=== PATIENT | female | born 1935 | race Caucasian/White ===

== ENCOUNTER 2016-04-11 08:14 | Emergency (ER) | payer OTHER ==
--- NOTE | 2016-04-11 08:18 | UCPHY ---
H & P Patient Type: Established HPI/ROS: CHIEF COMPLAINT: Chest pain. HISTORY OF PRESENT ILLNESS: The patient is an 80-year-old female with a history of chronic indigestion who presents with burning substernal chest pain since yesterday evening. She reports that the pain feels different than her usual indigestion as her indigestion never lasts throughout the night. Today the pain is rated as 3/10 and is non-radiating. She denies alleviating or provoking factors. No fever, diaphoresis, chills, shortness of breath, palpitations, vomiting, diarrhea, urinary complaints, headache, lightheadedness. She did have an endoscopy 6 weeks ago that showed an "esophageal tear". Patient reports heartburn symptoms seem to be worsening gradually over the last several weeks and she has began using Maalox or Mylanta on occasion. She does take Celebrex for arthritis, 200 mg BID, and also takes omeprazole 40 mg twice daily. No cardiac history. No history of hypertension, hypercholesterolemia, diabetes , or smoking. REVIEW OF SYSTEMS: Aside from elements discussed in the HPI, a comprehensive 10-point review of systems was reviewed and is negative. PAST MEDICAL HISTORY: GERD, arthritis, bursitis, tubal ligation. SOCIAL HISTORY: Nonsmoker but has had exposure to secondhand smoke, no alcohol use. VITAL SIGNS: Reviewed by me GENERAL: Elderly, pleasant, well-developed, well-nourished, resting comfortably in no respiratory distress. HEENT: Atraumatic. Eyes: No icterus, no injection. Mouth: moist mucous membranes. No erythema or lesions. Neck: supple with no adenopathy. LUNGS: Clear to auscultation bilaterally, no wheezes, rhonchi or rales. CARDIAC: Regular rate and rhythm, no rubs, murmurs or gallops. ABDOMEN: Soft, no tenderness to palpation, nondistended, bowel sounds normal. BACK: No CVA tenderness. EXTREMITIES: No trauma. No edema. Range of motion is normal throughout. NEURO: Alert and oriented, grossly nonfocal. SKIN: Warm and dry, no rash. PSYCHIATRIC: Normal mentation, no agitation. Portions of this note were transcribed by a medical device assembler. I personally performed a history, physical exam, medical decision making, and confirmed accuracy of information the transcribed note. Source: Patient Exam Limitations: No limitations - Personal History Tetanus Vaccine Date: <10 YRS AGO - Medical/Surgical History Hx Asthma: No Hx Chronic Respiratory Disease: No Hx Diabetes: No Hx Cardiac Disease: No Hx Renal Disease: No Hx Cirrhosis: No Hx Alcoholism: No Hx HIV/AIDS: No Hx Splenectomy or Spleen Trauma: No Other PMH: med hx-. arthiritis, bursitis, GERD. surg-knee replacements - Family History Significant Family History: No pertinent family hx, Other (second hand smoke from ) - Social History Smoking Status: Never smoked Constitutional: Initial Vital Signs Temperature (C) 36.6 C 04/11/16 08:20 Heart Rate 72 04/11/16 08:20 Respiratory Rate 18 04/11/16 08:20 Blood Pressure 176/98 H 04/11/16 08:20 O2 Sat (%) 96 04/11/16 08:20 O2 Delivery Mode Room Air Allergies/Adverse Reactions: ciprofloxacin Allergy (Verified 04/11/16 08:36) FELT SICK ALL OVER Home Medications: Medication Instructions Recorded Omeprazole [Prilosec 20 mg] 20 mg PO BID 06/11/11 celeCOXIB [Celebrex] 200 mg PO DAILY 06/11/11 Ranitidine HCl 300 mg PO HS #30 capsule 04/11/16 Medical Decision Making - Diagnostics EKG Interpretation: 12-LEAD EKG: Please see the full report in [facility]. My interpretation: Normal sinus rhythm rate 78 with a first degree AV block. No acute ischemic changes. Imaging: X-ray of the chest was obtained. I viewed the images myself on the PACS system. My interpretation of the images is: no acute process. The radiologist interpretation is pending at this time. I discussed the x-ray findings with the patient. ED Course/Re-evaluation: An IV was established and labs ordered. I reviewed the patient's past medical notes. She was seen 01/2016 for heartburn similar to today's pain and felt better after a GI cocktail. Chest x-ray and EKG ordered. 80-year-old female presents to the urgent care with heartburn for 12 hours. Of concern, the patient has recently had her Celebrex increased to 200 mg 2 times a day. She has been taking been taking omeprazole 40 mg 2 times a day to treat her heartburn. Patient's troponin is negative. 55ml PO GI Cocktail administered. Patient's H&H has noted to decrease slightly since her last visit here in January. Patient denies any vomiting or changes in her stool. No diarrhea. I reviewed the patient's records from her Upper GI endoscopy on 03/07/2016 from [facility]. Patient's stool negative for blood. Patient's course was discussed with Dr. Nguyen from [facility]. Dr. Nguyen reviewed the films from the upper GI which was done on March 07. Recommendations are to add Carafate slurry 1 g 4 times a day as well as ranitidine 300 mg at bedtime. 1020: Consulted with [facility]. An appointment was established for a stress test in 2 days, Saturday, at 8:[address] Sanchez. Differential Diagnosis: Differential diagnoses for the patient's symptom complex was considered including but not limited to reflux, ulcer disease, upper GI hemorrhage, coronary artery disease, pancreatitis, cholecystitis, cholelithiasis, coronary artery disease. - Data Points Laboratory Results: Laboratory Results 04/11/16 08:57 04/11/16 08:57 04/11/16 04/11/16 09:55 08:57 WBC 4.32 10^3/uL (3.80-9.50) RBC 4.21 10^6/uL (4.18-5.33) Hgb 10.4 L g/dL (12.6-16.3) Hct 32.2 L % (38.0-47.0) MCV 76.5 L fL (81.5-99.8) MCH 24.7 L pg (27.9-34.1) MCHC 32.3 L g/dL (32.4-36.7) RDW 15.2 % (11.5-15.2) Plt Count 324 10^3/uL (150-400) MPV 9.0 fL (8.7-11.7) Neut % (Auto) 41.0 % (39.3-74.2) Lymph % (Auto) 46.8 H % (15.0-45.0) [place] % (Auto) 8.1 % (4.5-13.0) Eos % (Auto) 3.2 % (0.6-7.6) Baso % (Auto) 0.7 % (0.3-1.7) Nucleat RBC Rel Count 0.0 % (0.0-0.2) Absolute Neuts (auto) 1.77 10^3/uL (1.70-6.50) Absolute Lymphs (auto) 2.02 10^3/uL (1.00-3.00) Absolute Monos (auto) 0.35 10^3/uL (0.30-0.80) Absolute Eos (auto) 0.14 10^3/uL (0.03-0.40) Absolute Basos (auto) 0.03 10^3/uL (0.02-0.10) Absolute Nucleated RBC 0.00 10^3/uL (0-0.01) Immature Gran % 0.2 % (0.0-1.1) Immature Gran # 0.01 10^3/uL (0.00-0.10) Sodium 139 mEq/L (134-144) Potassium 3.6 mEq/L (3.5-5.2) Chloride 107 mEq/L (97-110) Carbon Dioxide 22 mEq/l (22-31) Anion Gap 10 mEq/L (8-16) BUN 15 mg/dL (7-23) Creatinine 1.0 mg/dL (0.6-1.0) Estimated GFR 53 Glucose 97 mg/dL (70-100) Calcium 9.1 mg/dL (8.5-10.4) Total Bilirubin 0.8 mg/dL (0.1-1.4) AST 17 IU/L (14-46) ALT 29 IU/L (9-52) Alkaline Phosphatase 83 IU/L (38-126) Troponin I < 0.012 ng/mL (0-0.034) Total Protein 6.1 L g/dL (6.3-8.2) Albumin 3.5 g/dL (3.5-5.0) Lipase 201.0 IU/L (23-300) Stool Occult Bld Scrn NEGATIVE (NEGATIVE) Medications Given: Discontinued Medications Miscellaneous Medication (Gi Cocktail) 55 ml PO EDNOW ONE Stop: 04/11/16 09:25 Last Admin: 04/11/16 09:34 Dose: 55 ml Departure - Departure Disposition: Home, Routine, Self-Care Clinical Impression: Esophagitis Chest pain Qualifiers: Chest pain type: unspecified Qualifier Code: (R07.9) Chest pain, unspecified GERD (gastroesophageal reflux disease) Qualifiers: Esophagitis presence: with esophagitis Qualifier Code: (K21.0) Gastro- esophageal reflux disease with esophagitis Condition: Good Instructions: Chest Pain (ED), Esophagitis (ED) Additional Instructions: Use Ranitidine as prescribed. Take Carafate as instructed. Decrease your Celebrex dose to 200mg once per day. Follow up with Dr. Sanchez, cardiology, on Saturday at 8:30 a.m. for your stress test. You have been provided his telephone number and can call if you have questions. The appointment has already been scheduled. Follow up with Dr. Byrnes for your repeat endoscopy Return to Urgent Care or the emergency room if you experience dizziness, lightheadedness, worsening chest pain, shortness of breath, or other serious worsening of condition. Referrals: Brock Byrnes MD [Medical Doctor] - As per Instructions Edmar Sanchez MD [Medical Doctor] - As per Instructions Prescriptions: Ranitidine HCl 300 mg PO HS #30 capsule - PQRS PQRS Measurement: 134: Depression screening and followup, PRIME MD-PHQ2 (12 years and older) Over the last 2 weeks, how often have you been bothered by any of the following problems? 1. Feeling down, depressed, or hopeless? 2. Little interest or pleasure in doing things? Patient answered no to both 1 and 2 130: Documentation of medications. Reviewed all patient medications, doses, route and frequency. 226: Do you smoke? No. 47: 65 and older: Advanced care planning. Patient has advanced directive. 51: 18 years old and older with diagnosis of COPD, spirometry performance. Patient has no history of COPD 52: 18 years old and older with COPD and symptoms of COPD or FEV1<60% predicted prescribed a B Agonist. [Patient has no history of COPD Report Scribed for: Alyce Bautista Report Scribed by: Felix Pino Date of Report: 04/11/16 Time of Report: 08:35
[2016-04-11 08:27] VITALS: RESP 18
--- NOTE | 2016-04-11 08:29 | CPEKG ---
Heart Rate: 78 RR Interval: 769 P-R Interval: 284 QRSD Interval: 104 QT Interval: 436 QTC Interval: 497 P [place]: 23 QRS [place]: -39 T Wave [place]: 30 EKG Severity - ABNORMAL ECG - EKG Impression: SINUS RHYTHM EKG Impression: FIRST DEGREE AV BLOCK EKG Impression: LEFT AXIS DEVIATION EKG Impression: BORDERLINE PROLONGED QT INTERVAL Electronically Signed By: Edmar Sanchez 12-Apr-2016 17:05:22
[2016-04-11 08:40] VITALS: TEMP 97.9
[2016-04-11 09:00] LABS: % IMMATURE GRANULYOCYTES 0.2 % (0.0-1.1); ABSOLUTE IMMATURE GRANULOCYTES 0.01 10^3/uL (0.00-0.10); ADD DIFF? NO; ADD MORPH? NO; ADD SCAN? NO; ATYPICAL LYMPHOCYTE FLAG 10 (0-99); FRAGMENT RBC FLAG 0 (0-99); HEMATOCRIT 32.2 % (38.0-47.0); HEMOGLOBIN 10.4 g/dL (12.6-16.3); LEFT SHIFT FLG 0 (0-99); LIPEMIA HEMOLYSIS FLAG 80 (0-99); MEAN CELL HEMOGLOBIN 24.7 pg (27.9-34.1); MEAN CELL HEMOGLOBIN CONCENTR. 32.3 g/dL (32.4-36.7); MEAN CELL VOLUME 76.5 fL (81.5-99.8); PLATELET CLUMPS FLAG 0 (0-99); PLATELET COUNT 324 10^3/uL (150-400); RED BLOOD CELL COUNT 4.21 10^6/uL (4.18-5.33); RED CELL DISTRIBUTION WIDTH 15.2 % (11.5-15.2)
[2016-04-11 09:13] LABS: ALANINE AMINOTRANSFERASE 29 IU/L (9-52); ALBUMIN 3.5 g/dL (3.5-5.0); ALKALINE PHOSPHATASE 83 IU/L (38-126); ANION GAP 10 mEq/L (8-16); ASPARTATE AMINOTRANSFERASE 17 IU/L (14-46); BILIRUBIN,TOTAL 0.8 mg/dL (0.1-1.4); CALCIUM 9.1 mg/dL (8.5-10.4); CARBON DIOXIDE 22 mEq/l (22-31); CHLORIDE 107 mEq/L (97-110); GLOMERULAR FILTRATION RATE 53; GLUCOSE 97 mg/dL (70-100); POTASSIUM 3.6 mEq/L (3.5-5.2); SODIUM 139 mEq/L (134-144); TOTAL PROTEIN 6.1 g/dL (6.3-8.2)
[2016-04-11 09:24] LABS: TROPONIN I < 0.012 ng/mL (0-0.034)
[2016-04-11] MEDS ORDERED: MAALOX/LIDO/HYOSC GI COCKTAIL 55 ML BOTTLE PO ONE (09:24)
--- NOTE | 2016-04-11 10:53 | DX ---
Chest, PA and Lateral Views April 11, 2016 0846 hours Clinical History: 80-year-old female with prolonged epigastric discomfort and chest pain since last n ight. Comparison Study: Chest, dated February 02, 2016. Findings: Telemetry monitoring lead lines are present. The cardiac and mediastinal silhouette is stab le, with mild tortuosity of the descending thoracic aorta. The lungs are well-expanded. There is no f ocal infiltrate, atelectasis, pleural effusion, or peripheral interstitial edema. Mild underlying CIS COORDINATOR D is present. The osseous structures are age-appropriate. Impression: No acute abnormality, or substantial change from February 02, 2016.
[2016-04-11 11:29] VITALS: BP 135/99; PULSE 75; O2SAT 97
== END 2016-04-11 10:58 | disposition home or self-care (01) ==
LOC: CED 08:14
DX: K21.0 Gastro-esophageal reflux disease with esophagitis (principal); R07.9 Chest pain, unspecified; K21.9 Gastro-esophageal reflux disease without esophagitis; Z96.653 Presence of artificial knee joint, bilateral
CPT/HCPCS: 71020; 93005; G0463; 80053-PO; 82270-PO; 83690-PO; 84484-PO; 85025-PO; 93010-PO; 99215-PO

== ENCOUNTER → 2016-04-13 | Outpatient (CLI) | payer OTHER | LOC: BHFA 08:45 | PROVIDERS: ATTEND Internal Medicine Cardiovascular Disease | DX: R94.31 Abnormal electrocardiogram [ECG] [EKG] (principal); I11.9 Hypertensive heart disease without heart failure; R07.9 Chest pain, unspecified ==

== ENCOUNTER → 2016-04-19 | Outpatient (CLI) | payer OTHER | LOC: BHFA 13:00 | PROVIDERS: ATTEND Internal Medicine Cardiovascular Disease | DX: R07.9 Chest pain, unspecified (principal); R94.31 Abnormal electrocardiogram [ECG] [EKG] | CPT/HCPCS: 78452; 93017; 93306; A9500; J2785 ==

== ENCOUNTER → 2016-04-19 | Outpatient (CLI) | payer OTHER | LOC: BHCLAF 10:45 | PROVIDERS: ATTEND Internal Medicine Cardiovascular Disease | DX: R94.31 Abnormal electrocardiogram [ECG] [EKG] (principal) | CPT/HCPCS: 93306-PO ==

== ENCOUNTER 2016-06-14 11:54 | Inpatient (IN) | payer OTHER ==
--- NOTE | 2016-06-14 12:06 | CPEKG ---
Heart Rate: 85 RR Interval: 706 P-R Interval: 240 QRSD Interval: 104 QT Interval: 400 QTC Interval: 476 P [place]: 48 QRS [place]: 41 T Wave [place]: -4 EKG Severity - ABNORMAL ECG - EKG Impression: SINUS RHYTHM EKG Impression: MULTIFORM VENTRICULAR PREMATURE COMPLEXES EKG Impression: FIRST DEGREE AV BLOCK EKG Impression: BORDERLINE T ABNORMALITIES, INFERIOR LEADS Electronically Signed By: Jamin Taylor 15-Jun-2016 09:06:01
[2016-06-14 12:46] LABS: % IMMATURE GRANULYOCYTES 0.2 % (0.0-1.1); ABSOLUTE IMMATURE GRANULOCYTES 0.01 10^3/uL (0.00-0.10); ADD DIFF? NO; ADD MORPH? NO; ADD SCAN? NO; ATYPICAL LYMPHOCYTE FLAG 0 (0-99); FRAGMENT RBC FLAG 0 (0-99); HEMATOCRIT 32.2 % (38.0-47.0); HEMOGLOBIN 10.2 g/dL (12.6-16.3); LEFT SHIFT FLG 0 (0-99); LIPEMIA HEMOLYSIS FLAG 80 (0-99); MEAN CELL HEMOGLOBIN 24.3 pg (27.9-34.1); MEAN CELL HEMOGLOBIN CONCENTR. 31.7 g/dL (32.4-36.7); MEAN CELL VOLUME 76.7 fL (81.5-99.8); MEAN PLATELET VOLUME 9.2 fL (8.7-11.7); PLATELET CLUMPS FLAG 0 (0-99); PLATELET COUNT 406 10^3/uL (150-400); RED CELL DISTRIBUTION WIDTH 16.9 % (11.5-15.2)
[2016-06-14 12:51] LABS: APTT 25.2 SEC (23.0-38.0); INR 1.02 (0.83-1.16); PROTIME(PATIENT) 13.1 SEC (12.0-15.0)
[2016-06-14 12:54] LABS: ALANINE AMINOTRANSFERASE 24 IU/L (9-52); ALBUMIN 3.3 g/dL (3.5-5.0); ALKALINE PHOSPHATASE 85 IU/L (38-126); ANION GAP 11 mEq/L (8-16); ASPARTATE AMINOTRANSFERASE 15 IU/L (14-46); BILIRUBIN,TOTAL 0.6 mg/dL (0.1-1.4); CALCIUM 8.8 mg/dL (8.5-10.4); CARBON DIOXIDE 22 mEq/l (22-31); CHLORIDE 105 mEq/L (97-110); CREATININE 0.9 mg/dL (0.6-1.0); GLOMERULAR FILTRATION RATE > 60; GLUCOSE 120 mg/dL (70-100); POTASSIUM 3.8 mEq/L (3.5-5.2); SODIUM 138 mEq/L (134-144); TOTAL PROTEIN 5.8 g/dL (6.3-8.2)
--- NOTE | 2016-06-14 12:57 | UCPHY ---
H & P Patient Type: Established Chief Complaint Nursing Narrative: Pt. states aprox 0900 this am pt. felt epigastric burning as well as chest pressure with SOB. Denies radiating pain or n/v. Time Seen by Provider: 06/14/16 12:13 HPI/ROS: 80-year-old female presents complaining of dizziness/wooziness that began possibly intermittently yesterday but was much more noticeable this morning. She also states she has a feeling of chest heaviness, as if she needs to unzip her ribs to loosen them up. No nausea vomiting or diarrhea. She denies weakness in her extremities. She was able to drive to the urgent care today without difficulty. She denies recent illnesses. No history of coronary artery disease, however she does have a history of hypertension and hyperlipidemia, and has been noted to have PACs on multiple occasions. She states she has a history of pulmonary embolus following knee surgery. She is no longer on anticoagulants. Review of systems General no fever no chills no weakness HEENT no eye pain no eye discharge. No eye redness, no sore throat Respiratory no cough, no shortness of breath Cardiac positive chest heaviness/tightness, no peripheral edema GI no abdominal pain, no diarrhea, no constipation, no nausea, no vomiting no flank pain, no hematuria, no dysuria Musculoskeletal no myalgias, no joint pain Heme no easy bruising, no easy bleeding Endo no polyuria, no polydipsia Skin no rashes, no pruritus Neuro no syncope, positive dizziness, no headaches Psych is no suicidal ideation, no homicidal ideation Source: Patient Exam Limitations: No limitations - Personal History Current Tetanus/Diphtheria Vaccine: Yes Tetanus Vaccine Date: <10 YRS AGO - Medical/Surgical History Hx Asthma: No Hx Chronic Respiratory Disease: No Hx Diabetes: No Hx Cardiac Disease: Yes Hx Renal Disease: No Hx Cirrhosis: No Hx Alcoholism: No Hx HIV/AIDS: No Hx Splenectomy or Spleen Trauma: No Other PMH: med hx-. arthiritis, bursitis, GERD. surg-knee replacements. Hiatal hernia. Pulmonary embolus - Family History Significant Family History: No pertinent family hx - Social History Smoking Status: Never smoked Alcohol Use: None Drug Use: None - Physical Exam Exam: 80-year-old female alert and oriented in no acute distress, appears fatigued however appears nontoxic afebrile Atraumatic normocephalic Extraocular muscles intact, anicteric Neck no JVD, supple Lungs clear to auscultation bilaterally Heart regular rate and rhythm Abdomen nondistended bowel sounds present soft nontender Back no CVA tenderness Extremities-multiple varicose veins, no calf tenderness, no edema Constitutional: Initial Vital Signs Temperature (C) 36.2 C 06/14/16 12:00 Heart Rate 97 06/14/16 12:00 Respiratory Rate 26 H 06/14/16 12:00 Blood Pressure 131/76 H 06/14/16 12:00 O2 Sat (%) 97 06/14/16 12:00 O2 Delivery Mode Room Air Allergies/Adverse Reactions: ciprofloxacin Allergy (Verified 06/14/16 12:08) FELT SICK ALL OVER Home Medications: Medication Instructions Recorded Omeprazole [Prilosec 20 mg] 20 mg PO BID 06/11/11 celeCOXIB [Celebrex] 200 mg PO DAILY 06/11/11 Ranitidine HCl 300 mg PO HS #30 capsule 04/11/16 Carafate 1 GM (*) 06/14/16 Norvasc 2.5 mg (*) 06/14/16 Medical Decision Making - Diagnostics EKG Interpretation: He EKG done at 12:04 p.m. on June 14, 2016 Normal sinus rhythm, first-degree AV block OK 240 Flat Ts in the inferior leads Occasional PVCs Similar to EKG done in April of 2016 ED Course/Re-evaluation: Patient seen and evaluated for dizziness and chest heaviness EKG normal sinus rhythm no ischemic changes IV established, lab sent Troponin negative D-dimer elevated CT chest ordered to rule out pulmonary embolus CT chest with left lower lobe pulmonary embolus Also with large hiatal hernia Impression PE Plan Lovenox 80 mg subcu Admit to [facility] to EACU to Dr. Coelho - Data Points Laboratory Results: Laboratory Results 06/14/16 12:14 06/14/16 12:14 06/14/16 06/14/16 06/14/16 12:57 12:14 12:14 WBC RBC Hgb Hct MCV MCH MCHC RDW Plt Count MPV Neut % (Auto) Lymph % (Auto) [place] % (Auto) Eos % (Auto) Baso % (Auto) Nucleat RBC Rel Count Absolute Neuts (auto) Absolute Lymphs (auto) Absolute Monos (auto) Absolute Eos (auto) Absolute Basos (auto) Absolute Nucleated RBC Immature Gran % Immature Gran # PT 13.1 SEC SEC (12.0-15.0) INR 1.02 (0.83-1.16) APTT 25.2 SEC SEC (23.0-38.0) D-Dimer 1.34 ug/mLFEU H ug/mLFEU (0.00-0.50) Sodium 138 mEq/L mEq/L (134-144) Potassium 3.8 mEq/L mEq/L (3.5-5.2) Chloride 105 mEq/L mEq/L (97-110) Carbon Dioxide 22 mEq/l mEq/l (22-31) Anion Gap 11 mEq/L mEq/L (8-16) BUN 15 mg/dL mg/dL (7-23) Creatinine 0.9 mg/dL mg/dL (0.6-1.0) Estimated GFR > 60 Glucose 120 mg/dL H mg/dL (70-100) Calcium 8.8 mg/dL mg/dL (8.5-10.4) Total Bilirubin 0.6 mg/dL mg/dL (0.1-1.4) AST 15 IU/L IU/L (14-46) ALT 24 IU/L IU/L (9-52) Alkaline Phosphatase 85 IU/L IU/L (38-126) Troponin I < 0.012 ng/mL ng/mL (0-0.034) Total Protein 5.8 g/dL L g/dL (6.3-8.2) Albumin 3.3 g/dL L g/dL (3.5-5.0) Group A Strep Screen NEGATIVE (NEGATIVE) 06/14/16 12:14 WBC 5.07 10^3/uL 10^3/uL (3.80-9.50) RBC 4.20 10^6/uL 10^6/uL (4.18-5.33) Hgb 10.2 g/dL L g/dL (12.6-16.3) Hct 32.2 % L % (38.0-47.0) MCV 76.7 fL L fL (81.5-99.8) MCH 24.3 pg L pg (27.9-34.1) MCHC 31.7 g/dL L g/dL (32.4-36.7) RDW 16.9 % H % (11.5-15.2) Plt Count 406 10^3/uL H 10^3/uL (150-400) MPV 9.2 fL fL (8.7-11.7) Neut % (Auto) 48.3 % % (39.3-74.2) Lymph % (Auto) 41.4 % % (15.0-45.0) [place] % (Auto) 8.3 % % (4.5-13.0) Eos % (Auto) 1.4 % % (0.6-7.6) Baso % (Auto) 0.4 % % (0.3-1.7) Nucleat RBC Rel Count 0.0 % % (0.0-0.2) Absolute Neuts (auto) 2.45 10^3/uL 10^3/uL (1.70-6.50) Absolute Lymphs (auto) 2.10 10^3/uL 10^3/uL (1.00-3.00) Absolute Monos (auto) 0.42 10^3/uL 10^3/uL (0.30-0.80) Absolute Eos (auto) 0.07 10^3/uL 10^3/uL (0.03-0.40) Absolute Basos (auto) 0.02 10^3/uL 10^3/uL (0.02-0.10) Absolute Nucleated RBC 0.00 10^3/uL 10^3/uL (0-0.01) Immature Gran % 0.2 % % (0.0-1.1) Immature Gran # 0.01 10^3/uL 10^3/uL (0.00-0.10) PT INR APTT D-Dimer Sodium Potassium Chloride Carbon Dioxide Anion Gap BUN Creatinine Estimated GFR Glucose Calcium Total Bilirubin AST ALT Alkaline Phosphatase Troponin I Total Protein Albumin Group A Strep Screen Departure - Departure Disposition: [facility] Acute Clinical Impression: Pulmonary embolus, Hiatal hernia, Dizziness Condition: Good - PQRS PQRS Measurement: 134: Depression screening and followup, PRIME MD-PHQ2 (12 years and older) Over the last 2 weeks, how often have you been bothered by any of the following problems? 1. Feeling down, depressed, or hopeless? 2. Little interest or pleasure in doing things? Patient answered no to both 1 and 2 130: Documentation of medications. Reviewed all patient medications, doses, route and frequency. 226: Do you smoke? No. 47: 65 and older: Advanced care planning. Patient designates surrogate decision maker as spouse.. [Patient has advanced directive.] 51: 18 years old and older with diagnosis of COPD, spirometry performance. [Patient has no history of COPD 52: 18 years old and older with COPD and symptoms of COPD or FEV1<60% predicted prescribed a B Agonist. [Spirometry not performed; equipment not available.]
[2016-06-14] MEDS ORDERED: IOPAMIDOL (ISOVUE 370) 100 ML BTL IV ONE (13:08)
[2016-06-14 13:10] LABS: TROPONIN I < 0.012 ng/mL (0-0.034)
[2016-06-14] MEDS ORDERED: ENOXAPARIN 80 MG/0.8 ML SYR SC ONE (15:21)
[2016-06-14] MEDS ORDERED: MAG HYDROX/AL HYDROX/SIMETH 30 ML UDCUP PO PRN (16:06)
[2016-06-14] MEDS ORDERED: ONDANSETRON DISINTEGRATING 4 MG TAB PO PRN (19:03)
[2016-06-14] MEDS ORDERED: ACETAMINOPHEN 325 MG TAB PO PRN (19:03)
[2016-06-14] MEDS ORDERED: ONDANSETRON 4 MG/2 ML VIAL IVP PRN (19:03)
[2016-06-14] MEDS ORDERED: oxyCODONE IR 5 MG TAB PO PRN (19:07)
[2016-06-14] MEDS: FAMOTIDINE 20 MG TAB PO SCH (20:23)
[2016-06-14] MEDS: PANTOPRAZOLE SODIUM 40 MG TAB PO SCH (20:24)
[2016-06-14] MEDS ORDERED: SUCRALFATE 1 GM TAB PO SCH (21:00)
[2016-06-14] MEDS ORDERED: NON-FORMULARY NEW DRUG (Ranitidine Hcl [Ranitidine Hcl] 300 MG) PO SCH (21:00)
[2016-06-14] MEDS ORDERED: NON-FORMULARY NEW DRUG (Omeprazole [Prilosec 20 Mg] 20 MG) PO SCH (21:00)
--- NOTE | 2016-06-14 21:05 | GHP ---
[f rep st] HISTORY AND PHYSICAL DATE OF ADMISSION: 06/14/2016 CHIEF COMPLAINT: Pulmonary embolism. 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 This was more notable today. She also has had a chest heaviness as if she needs to unzip her ribs to loosen them up. Per daughter, patient underwent esophageal dilatation 2 weeks ago and has been complaining of a dry cough and sore throat, hence why they came to the clinic today. The cough is dry and she denies fevers, chills or sweats. No nausea, vomiting, diarrhea. Denies weakness. She has noted more shortness of breath with exertion, like taking out the trash or chores. REVIEW OF SYSTEMS: I completed a 10-point review of systems, negative except as noted in HPI. PAST MEDICAL HISTORY: At least 2 pulmonary embolisms in the setting of surgery , also DVT, hypertension, hypothyroid, memory loss, arthritis, hiatal hernia. PAST SURGICAL HISTORY: Tonsillectomy, tubal ligation, bilateral TKA, ankle surgery and hysterectomy. SOCIAL HISTORY: Lives in [place] alone. Her daughter lives in [place]. No illicit drugs or alcohol. FAMILY HISTORY: No clots, no CAD. ALLERGIES: Ciprofloxacin. MEDICATIONS: 1. Carafate. 2. Levothyroxine 37 mcg daily. 3. Norvasc 2.5 mg daily. 4. Celebrex 200 mg daily. 5. Ranitidine 300 mg at bedtime. 6. Prilosec 20 mg daily. PHYSICAL EXAM: VITAL SIGNS: Temperature 36.4, blood pressure 151/86, heart rate 70s, respirations 18, 95% on room air. GENERAL: Patient is lying in bed, no acute distress. HEENT: PERRLA, EOMI, moist mucous membranes. CV: Regular rate and rhythm. No murmurs, gallops, rubs. LUNGS: Clear to auscultation bilaterally. No wheezes or crackles. ABDOMEN: Soft, nontender, nondistended. Positive bowel sounds. : No suprapubic tenderness. MUSCULOSKELETAL: 5/5 upper and lower extremity strength. NEURO: 2 through 12 intact. PSYCH: Alert and oriented x3. LABS: WBC 5, hemoglobin 10, hematocrit 32, stable from 2 months ago. MCV 76.7. INR 1. PT 13. PTT 25. D-dimer is 134. Sodium 138, potassium 3.8, chloride 105, carbon dioxide 22, BUN 15, creatinine 0.9, glucose 120. Troponin less than 0.012. Total bilirubin 0.6, total protein 5.8, albumin 3.3. CTA: Solitary segmental left pulmonary embolism. Coronary artery disease. Large hiatal hernia. Multiple noncalcified pulmonary nodules including a dominant ground glass in the left upper lobe. Chest x-ray personally reviewed by me: No opacity or effusion. EKG personally reviewed by me: PVC, first-degree block, ST flattening in inferior leads. Similar to past EKGs. ASSESSMENT/PLAN: 1. Acute pulmonary embolism: she has had prior pulmonary embolisms and DVTs, but has been off Coumadin for years. At this point, I would recommend lifelong anticoagulation. I spoke with patient and daughter, and they would prefer Coumadin. We will start that tomorrow. Currently on Lovenox dosing. Of note, the patient was seen by jazz musician and was concern for microcytic anemia , and is to undergo colonoscopy. Currently patient denies any bleeding, melena or bright red blood per rectum. She does take Celebrex. Will advise her to hold this medication. It appears she does not have any active bleeding. I did stress symptoms to watch out for include dizziness, rectal bleeding, melena. 2. Patient would like home health to help her with Lovenox shots at home. 3. Benign hypertension. Continue home medications. 4. Hypothyroidism. Continue levothyroxine. 5. Memory loss. Per daughter, there is concern that the patient is forgetting some of her home medications. She and her sister would like Case Management to help with assistance at home, possibly a home nurse and other services. 6. Diet: Regular. 7. DVT prophylaxis: On Lovenox. DISPOSITION: Patient warrants observation admission given acute PE, monitoring on telemetry. /[id number]/MODL [id number]
[2016-06-15 05:16] LABS: HEMATOCRIT 30.8 % (38.0-47.0); HEMOGLOBIN 9.8 g/dL (12.6-16.3); MEAN CELL HEMOGLOBIN 24.1 pg (27.9-34.1); MEAN CELL HEMOGLOBIN CONCENTR. 31.8 g/dL (32.4-36.7); MEAN CELL VOLUME 75.7 fL (81.5-99.8); RED BLOOD CELL COUNT 4.07 10^6/uL (4.18-5.33); RED CELL DISTRIBUTION WIDTH 16.8 % (11.5-15.2)
[2016-06-15] MEDS: LEVOTHYROXINE 25 MCG TAB PO SCH (05:18)
[2016-06-15] MEDS: ENOXAPARIN 80 MG/0.8 ML SYR SC SCH ×3 (05:18→20:19)
[2016-06-15 05:20] LABS: INR 1.12 (0.83-1.16); PROTIME(PATIENT) 14.3 SEC (12.0-15.0)
[2016-06-15] MEDS: PANTOPRAZOLE SODIUM 40 MG TAB PO SCH ×2 (08:38→20:18)
[2016-06-15] MEDS: SUCRALFATE 1 GM TAB PO SCH ×3 (12:44→20:34)
--- NOTE | 2016-06-15 13:27 | HOSPPROG ---
Hospitalist Progress Note Assessment/Plan: Patient is an 80-year-old female with a history of a PE x2 in a DVT in the past. This occurred approximately 20 years ago. She presented to urgent care with dizziness that started yesterday. She also underwent a recent esophageal dilatation 2 weeks ago. Today is my 1st encounter with the patient. Chart reviewed. *. 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 multiple noncalcified pulmonary nodules - she get a repeat CT of her chest in 6 months for follow-up * large hiatal hernia * anemia/ microcytic - she is to undergo a colonoscopy - recommend close follow-up because she will be on oral anticoagulation - slight drop in her hemoglobin hematocrit /will recheck labs in the morning * memory loss/ per nursing staff had some ing yesterday - speech therapy to do a cognitive evaluation while she is in the hospital * hypertension - blood pressure is stable * recent esophageal dilatation - continue Carafate * hypothyroidism - Synthroid *Plan: she will require another midnight stay for close monitoring/ very concerned about discharging home with microcytic anemia and starting OAC/ she had a drop in h/h. Will also ask ST to do a cognitive evaluation. She lives alone. Daughter has voiced concern about her mom's inablilty to take medications safely. Case Management actively involved in helping arrange home care. Also follow-up appointment with patient's primary care provider has been done by case management. Appreciate their involvement with caring for this patient Subjective: Kennedy has no complaints. She is very anxious to return home. But is willing to stay another night after case management talk with her and her daughter. Objective: Vital Signs Temp Pulse Resp BP Pulse Ox 37.2 C 87 16 114/67 97 06/15/16 11:45 06/15/16 11:45 06/15/16 11:45 06/15/16 11:45 06/15/16 11:45 Laboratory Results 06/15/16 04:30 06/14/16 06/15/16 06/16/16 05:59 05:59 05:59 Intake Total 250 Output Total 200 Balance 50 PT 14.3 SEC (12.0-15.0) 06/15/16 04:30 INR 1.12 (0.83-1.16) 06/15/16 04:30 - Physical Exam Constitutional: no apparent distress, appears nourished, not in pain Eyes: PERRL Ears, Nose, Mouth, Throat: hearing normal Cardiovascular: regular rate and rhythym Respiratory: no respiratory distress Gastrointestinal: normoactive bowel sounds Skin: warm, No normal color (pale) Musculoskeletal: full muscle strength Neurologic: AAOx3 Psychiatric: interacting appropriately, poor insight, poor judgement, poor memory ICD10 Worksheet Patient Problems: Problems Problem Status Onset Dizziness Acute Hiatal hernia Acute Pulmonary embolus Acute GERD (gastroesophageal reflux disease) Acute
[2016-06-15] MEDS ORDERED: WARFARIN SODIUM 5 MG TAB PO SCH (16:00)
[2016-06-15] MEDS: FAMOTIDINE 20 MG TAB PO SCH (20:19)
[2016-06-16] MEDS: LEVOTHYROXINE 25 MCG TAB PO SCH (05:08)
[2016-06-16 05:14] LABS: HEMATOCRIT 30.3 % (38.0-47.0); HEMOGLOBIN 9.5 g/dL (12.6-16.3)
[2016-06-16 05:21] LABS: INR 1.12 (0.83-1.16); PROTIME(PATIENT) 14.3 SEC (12.0-15.0)
[2016-06-16 07:38] VITALS: BP 117/79; PULSE 84; RESP 15; TEMP 98.4; O2SAT 95
[2016-06-16] MEDS: SUCRALFATE 1 GM TAB PO SCH ×2 (07:48→11:34)
[2016-06-16] MEDS: PANTOPRAZOLE SODIUM 40 MG TAB PO SCH (08:33)
[2016-06-16] MEDS: ENOXAPARIN 80 MG/0.8 ML SYR SC SCH (09:02)
--- NOTE | 2016-06-16 10:19 | HOSPPROG ---
Hospitalist Progress Note Assessment/Plan: Patient is an 80-year-old female with a history of a PE x2 in a DVT in the past. This occurred approximately 20 years ago. She presented to urgent care with dizziness that started yesterday. She also underwent a recent esophageal dilatation 2 weeks ago. *. Acute PE - patient has a history of this x2 should stay on lifelong Coumadin - on treatment dose of Lovenox/will change it to once daily so home care can give it to her - started on Coumadin *. multiple noncalcified pulmonary nodules - she get a repeat CT of her chest in 6 months for follow-up * large hiatal hernia * anemia/ microcytic - she is to undergo a colonoscopy - recommend close follow-up because she will be on oral anticoagulation * memory loss/ per nursing staff had some ing yesterday - speech therapy evaluated and noted short term memory loss * hypertension - blood pressure is stable * recent esophageal dilatation - continue Carafate * hypothyroidism - Synthroid *Plan: dc home with home care/ recommended no driving until she gets further w/ u in the OP setting/ she needs to get a full evaluation for this by a neurologist. Subjective: Kennedy has no complaints. No shortness of breath. Objective: Vital Signs Temp Pulse Resp BP Pulse Ox 36.9 C 84 15 117/79 95 06/16/16 07:36 06/16/16 07:36 06/16/16 07:36 06/16/16 07:36 06/16/16 07:36 Laboratory Results 06/16/16 04:39 06/15/16 06/16/16 06/17/16 05:59 05:59 05:59 Intake Total 300 Output Total 200 Balance 100 PT 14.3 SEC (12.0-15.0) 06/16/16 04:39 INR 1.12 (0.83-1.16) 06/16/16 04:39 - Physical Exam Constitutional: no apparent distress, appears nourished, not in pain Eyes: PERRL Ears, Nose, Mouth, Throat: hearing normal Cardiovascular: regular rate and rhythym Respiratory: no respiratory distress Gastrointestinal: normoactive bowel sounds, soft, non-tender abdomen Skin: warm, No normal color (pale) Musculoskeletal: full muscle strength, no muscle tenderness Neurologic: AAOx3 Psychiatric: interacting appropriately, poor memory, other (defensive) ICD10 Worksheet Patient Problems: Problems Problem Status Onset Dizziness Acute Hiatal hernia Acute Pulmonary embolus Acute GERD (gastroesophageal reflux disease) Acute
[2016-06-16] MEDS ORDERED: ENOXAPARIN 40 MG/0.4 ML SYR SC ONE (10:20)
--- NOTE | 2016-06-16 10:54 | PDIAF ---
- Diagnosis Diagnosis: PE, short term memory loss, iron deficiency anemia Code Status: Full Code - Medication Management Discharge Medications: Medications to Continue on Transfer Omeprazole [Prilosec 20 mg] 20 mg PO BID 06/11/11 [Last Taken 06/14/16] Ranitidine HCl 300 mg PO HS #30 capsule 04/11/16 [Last Taken 06/13/16] Levothyroxine [Synthroid 25 mcg (*)] 37.5 mcg PO DAILY06 06/14/16 [Last Taken ] Sucralfate [Carafate 1 GM (*)] 1 gm PO HS 06/14/16 [Last Taken 06/13/16] amLODIPine BESYLATE [Norvasc 2.5 mg (*)] 2.5 mg PO DAILY 06/14/16 [Last Taken 03:00] Enoxaparin [Lovenox 120 MG (*)] 120 mg SQ DAILY #5 ml 06/16/16 [Last Taken Unknown] Sucralfate [Carafate 1 GM (*)] 1 gm PO ACHS #0 tab 06/16/16 [Last Taken Unknown] Warfarin Sodium [Coumadin 5MG (*)] 5 mg PO DAILY AT 4PM #30 tab 06/16/16 [Last Taken Unknown] Discharge Medications: Refer to the Discharge Home Medication list for PRN reason. - Orders Services needed: Home Care, Registered Nurse, Speech Language Pathologist Home Care Face to Face: I certify that this patient was under my care and that I had the required [id number] encounter meeting the encounter requirements on the discharge day. My findings support the fact that the patient is homebound as defined in CMS Chapter 7 Medicare Benefits Manual 30.1.1, The condition of the patient is such that there exists a normal inability to leave home and consequently, leaving home would require a considerable and taxing effort. Diet Recommendation: no restrictions on diet Diet Texture: Regular Texture Diet Additional: Patient needs f/u with Dr Mayes/ has an appt on / recommending she see a neurolgist for further evaluation in regards to driving. She needs close monitoring of INR and hemoglobin and hematocrit/ she is on coumadin and has iron deficiency anemia/ needs close f/u with her gastroenterolgist. - Labs/Radiology HCT/HGB Date: 06/18/16 (weekly) PT/INR Date: 06/18/16 (q 3days till stable) - Follow Up Care Current Providers and Referrals: Kassi Stephens MD [Primary Care Provider] - As per Instructions
--- NOTE | 2016-06-16 11:39 | GDS ---
[f rep st] DISCHARGE SUMMARY DISCHARGE DIAGNOSES: 1. Acute pulmonary embolism. 2. Multiple noncalcified pulmonary nodules. 3. Large hiatal hernia. 4. Microcytic anemia. 5. Short-term memory loss. 6. Hypertension. 7. Recent esophageal dilatation. 8. Hypothyroidism. Briefly, the patient is an 80-year-old female with a history of pulmonary embolism x2 and a DVT in the past, which occurred approximately 20 years ago. She presented to the emergency room with dizziness. Per daughter, the patient underwent esophageal dilatation approximately 2 weeks ago and has been complaining of a dry cough and sore throat until they came to the clinic. She had a CTA performed that showed a solitary segmental left pulmonary embolism. She has coronary artery disease as well as a large hiatal hernia. She has multiple noncalcified pulmonary nodules, including a dominant ground-glass nodule in the left upper lobe. She will need a followup CT of her chest. She slowly improved through her stay. The big issue was to be sure that she was safe to return home. She had a cognitive evaluation done by the speech therapist, who recommended assistance with medications, finances, and recommended no driving. She will have a home care speech therapist evaluate in her home. HOSPITAL COURSE: 1. Acute PE. She has a history of this x2. She should be on lifelong Coumadin. Case management spoke to her doctor, Dr. Mayes, who will follow up with her INR. She also has an appointment with her next week. 2. Multiple noncalcified pulmonary nodules. She needs to get a repeat CT scan in 6 months for followup. 3. Large hiatal hernia. No complaints. 4. Microcytic anemia. She is to go undergo a colonoscopy. I explained to the patient and her daughter my concerns of starting her on oral anticoagulation in the setting of microcytic anemia. She will have her hemoglobin and hematocrit monitored. 5. Memory loss. I am concerned that she has significant short-term memory loss and possibly dementia. I have recommended that she not drive until she is further evaluated by a neurologist. 6. Hypertension. Blood pressure is stable. 7. Recent esophageal dilatation, doing well with Carafate. 8. Hypothyroidism, on Synthroid. PENDING LABS AND TESTS: None. CONDITION AT DISCHARGE: Stable. Blood pressure is 117/79. Heart rate is 84. Respiratory rate is 16. O2 sats on room air are 95%. Temperature is 36.9 Celsius. MEDICATIONS ON DISCHARGE: Please see the EMR. DISCHARGE INSTRUCTIONS: 1. Recommending that she follow up with Dr. Mayes next week. She has an appointment. 2. No driving until she follows with Dr. Mayes. I am recommending that she see a neurologist to further evaluate her. 3. INR to be checked Saturday. Her doctor will decide on her dose of Coumadin. 4. Lovenox daily until INR is therapeutic for greater than 2 days. 5. Try Tylenol at night. She has been taking Percocet. 6. Stop Celebrex. 7. To get pulmonary nodules further evaluated in 6 months. Greater than 30 minutes for discharging and coordinating care. /[id number]/MODL MTDD
== END 2016-06-16 12:34 | disposition home health service (06) | DRG 176 ==
LOC: CED 11:54 → CEDHOLD 15:16 → F3N 18:26 → OBSVTOIN 06-15 17:02
PROVIDERS: ADMIT Internal Medicine; ATTEND Internal Medicine
DX: I26.99 Other pulmonary embolism without acute cor pulmonale (principal); R91.1 Solitary pulmonary nodule; D50.9 Iron deficiency anemia, unspecified; R41.3 Other amnesia; E78.5 Hyperlipidemia, unspecified; I10 Essential (primary) hypertension; E03.9 Hypothyroidism, unspecified; I25.10 Atherosclerotic heart disease of native coronary artery without angina pectoris; K44.9 Diaphragmatic hernia without obstruction or gangrene; Z86.718 Personal history of other venous thrombosis and embolism; Z86.711 Personal history of pulmonary embolism; Z96.653 Presence of artificial knee joint, bilateral
CPT/HCPCS: 71020-PO; 71275-PO; 80053-PO; 84484-PO; 85025-PO; 85378-PO; 85610-PO; 85730-PO; 87880-PO; 92523-GN; 96372-PO; 97161-GP; G0378; G0463-PO; G8978-GP-CI; G8979-GP-CI; G8980-GP-CI; G9168-GN-CL; G9169-GN-CJ; G9170-GN-CL; J1650; Q9967

== ENCOUNTER → 2016-12-25 | Outpatient (CLI) | payer OTHER | LOC: CIMAGING 08:18 | PROVIDERS: ATTEND Internal Medicine | DX: R91.8 Other nonspecific abnormal finding of lung field (principal); K80.20 Calculus of gallbladder without cholecystitis without obstruction; K44.9 Diaphragmatic hernia without obstruction or gangrene | CPT/HCPCS: 71250-PO ==

== ENCOUNTER 2017-07-06 12:14 | Emergency (ER) | payer OTHER ==
--- NOTE | 2017-07-06 12:52 | EDPHY ---
HPI/HX/ROS/PE/MDM Narrative: CHIEF COMPLAINT: Cough HPI: The patient is a 81-year-old female with a history of pulmonary embolus, currently on Eliquis. She complains of dry nonproductive cough has been present for approximately 5 days. She denies fever. She denies chest pain or shortness of breath. She denies leg swelling. She denies known sick contact. She initially presented to [facility] but was advised to go instead to this emergency department REVIEW OF SYSTEMS: Aside from elements discussed in the HPI, a comprehensive 10-point review of systems was reviewed and is negative. PMH: Includes pulmonary embolus, Eliquis. SOCIAL HISTORY: Denies alcohol or drug abuse. PHYSICAL EXAM: General:Patient is alert, in no acute distress. ENT:Eyes are normal to inspection. ENT inspection normal. Neck: Normal inspection. Full range of motion. Respiratory:No respiratory distress. Breath sounds normal bilaterally. Cardiovascular: Regular rate and rhythm. Strong peripheral pulses. Normal cap refill. Abdomen:The abdomen is nontender to palpation. There are no peritoneal signs. There are normal bowel sounds. Back: Normal to inspection. No tenderness to palpation. Skin: Normal color. No rash. Warm and dry. Extremities: Normal appearance. Full range of motion. Neuro: Oriented x3. Normal motor function. Normal sensory function. ED Course: D-dimer normal, BMP normal, chest x-ray consistent with bronchitis. MDM: This patient presents with dry cough for the last few days, and the setting normal vital signs. Her daughter's concern is that her cough was the symptoms that led them to seek care approximately 1 year ago when she was ultimately diagnosed with a pulmonary embolus. Her symptoms today are not consistent with pulmonary embolus but nevertheless we sent a D-dimer which is thankfully negative. Given low pretest probability, active treatment with Eliquis and negative D-dimer, I think the patient is low risk for pulmonary embolus and I do not think a CT angiogram is indicated. Patient will be discharged home with strict return precautions and be prescribed a cough suppressant per her request. - Data Points Imaging Results: Imaging Impressions Chest X-Ray 07/06/17 12:24 Impression: 1. Bronchitis/airways disease. 2. Left upper lobe and lingular pulmonary nodules described in November 2016 CT chest, at which time it was recommended to do a follow-up CT chest in one year, which would be due in November 2017 and is, therefore, again recommended. 3. No definite pneumonia or pleural effusion. Findings and recommendations discussed with emergency department physician, Luis Whaley MD at 1307 hours on July 06, 2017. Final report concurs with initial preliminary interpretation. Laboratory Results: Laboratory Results 07/06/17 12:55 07/06/17 07/06/17 12:55 12:55 D-Dimer 0.45 ug/mLFEU ug/mLFEU (0.00-0.50) Sodium 130 mEq/L L mEq/L (135-145) Potassium 3.7 mEq/L mEq/L (3.5-5.2) Chloride 98 mEq/L mEq/L (97-110) Carbon Dioxide 27 mEq/l mEq/l (22-31) Anion Gap 5 mEq/L L mEq/L (8-16) BUN 15 mg/dL mg/dL (7-23) Creatinine 1.0 mg/dL mg/dL (0.6-1.0) Estimated GFR 53 Glucose 101 mg/dL H mg/dL (70-100) Calcium 9.1 mg/dL mg/dL (8.5-10.4) General Time Seen by Provider: 07/06/17 12:21 Initial Vital Signs: Initial Vital Signs Temperature (C) 36.9 C 07/06/17 12:19 Heart Rate 72 07/06/17 12:19 Respiratory Rate 16 07/06/17 12:19 Blood Pressure 122/79 H 07/06/17 12:19 O2 Sat (%) 92 07/06/17 12:19 O2 Delivery Mode Room Air Allergies/Adverse Reactions: ciprofloxacin Allergy (Verified 07/06/17 12:22) Pt unsure of rxn- 20 years ago Home Medications: Medication Instructions Recorded Omeprazole [Prilosec 20 mg] 06/11/11 Levothyroxine [Synthroid 25 mcg 06/14/16 (*)] amLODIPine BESYLATE [Norvasc 2.5 06/14/16 mg (*)] Codeine Phosphate/Guaifenesin 10 ml PO Q6H PRN #100 ml 07/06/17 [Guaifen-Codeine 100-10 mg/5 ml] Eliquis 07/06/17 Ranitidine HCl 04/07/18 Departure - Departure Disposition: Home, Routine, Self-Care Clinical Impression: Acute bronchitis Condition: Good Instructions: Acute Bronchitis (ED) Additional Instructions: Follow up with your primary care physician within 72 hours for reevaluation. Drink plenty of fluids. Return to the emergency department immediately for high fever, severe headache or neck pain, difficulty breathing, abdominal pain, rash or other worsening of condition. Referrals: Kassi Stephens MD [Primary Care Provider] - As per Instructions Prescriptions: Codeine Phosphate/Guaifenesin [Guaifen-Codeine 100-10 mg/5 ml] 10 ml PO Q6H PRN #100 ml PRN Reason: Cough, Severe
[2017-07-06 13:34] VITALS: BP 130/76
== END 2017-07-06 13:32 | disposition home or self-care (01) ==
LOC: CED 12:14
DX: J20.9 Acute bronchitis, unspecified (principal)
CPT/HCPCS: 71046-PO; 80048-PO; 85378-PO

== ENCOUNTER → 2017-10-25 | Outpatient (CLI) | payer OTHER | LOC: FIMAGING 14:01 | PROVIDERS: ATTEND Internal Medicine | DX: Z13.820 Encounter for screening for osteoporosis (principal); E03.9 Hypothyroidism, unspecified; E78.5 Hyperlipidemia, unspecified; I10 Essential (primary) hypertension; R26.89 Other abnormalities of gait and mobility; R53.83 Other fatigue; Z78.0 Asymptomatic menopausal state ==

== ENCOUNTER 2017-12-02 12:32 | Emergency (ER) | payer OTHER ==
--- NOTE | 2017-12-02 12:37 | EDPHY ---
H & P Time Seen by Provider: 12/02/17 12:37 HPI/ROS: CHIEF COMPLAINT: Low back pain HISTORY OF PRESENT ILLNESS: This is an 81-year-old female with a recent history of urinary tract infection for which she has been prescribed amoxicillin. 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 1 week ago she was evaluated at [facility], diagnosed with urinary tract infection, and started on Macrobid. She failed to improve and saw her primary care physician this past , 4 days ago, and was started on amoxicillin twice daily. Her daughter , who accompanies her today, states that her mother has apparently not been taking the antibiotic as prescribed, as there are extra amoxicillin pills in her medication box. Today's visit was prompted by back pain that has been present for at least the past week but worsened recently. Patient states that the pain is on the right side of her back down low and extends into the upper buttock. She has no leg pain, no weakness, no numbness, and no change in bowel or bladder control. However, her low back hurts when she is moving her right leg. She has not had fever. No recent falls or trauma. She does pull dandelions in her yard regularly, but has been doing so all summer without complaint of back pain. In addition, the patient complains of a cough that began yesterday. It is nonproductive. No hemoptysis. She takes Eliquis daily and feels that she has been compliant with that medication. Again, her daughter is not certain. The patient denies chest pain. She does not feel short of breath. She has no leg swelling or calf tenderness. REVIEW OF SYSTEMS: A ten system review of systems was performed and is negative with the exception of the items mentioned in the HPI. Past medical history: 1. PE/DVT 2. Hypertension 3. Hypothyroidism 4. Arthritis 5. Hiatal hernia 6. Memory loss Past surgical history: 1. Esophageal dilatation 2. Bilateral knee replacements 3. Tubal ligation/hysterectomy 4. Right ankle surgery, ORIF 6. Tonsillectomy Social history: She is . She lives alone in a single family home [address] on [address] She does not use tobacco or alcohol products. She has a daughter that lives in [place] and another daughter and son that live elsewhere. General Appearance: Alert. Vital signs reviewed. Blood pressure 144/79. Room air pulse ox 94%. Eyes: Pupils equal and round, no conjunctival injection, no discharge. Anicteric. Neck: No lymphadenopathy, supple. Respiratory: Lungs are clear to auscultation; no wheezes, rales, or rhonchi. Cardiovascular: Regular rate and rhythm; no murmur, rub, or gallop. Gastrointestinal: Abdomen is soft and nontender, no masses or organomegaly, bowel sounds normal. Skin: Warm and dry, no rashes on exposed skin, normal color. Back: Tender to palpation over the lower lumbar spine, no step-offs or deformities. No CVAT. Extremities: No lower extremity edema, no calf tenderness or swelling. Neurological: Alert and oriented. Moving all four extremities easily and equally. Strength is 5 over 5 bilaterally with testing of all major motor groups. Sensation is intact to light touch and sharp touch over both lower extremities. Deep tendon reflexes are 2+ in the knees bilaterally. Gait is normal. Psychiatric: Normal affect. - Personal History Tetanus Vaccine Date: within 10 YRS AGO - Medical/Surgical History Hx Asthma: No Hx Chronic Respiratory Disease: No Hx Diabetes: No Hx Cardiac Disease: No Hx Renal Disease: No Hx Cirrhosis: No Hx Alcoholism: No Hx HIV/AIDS: No Hx Splenectomy or Spleen Trauma: No Other PMH: med hx-. arthiritis, bursitis, GERD, HTN. surg-knee replacements. Hiatal hernia, tonsillectomy. Pulmonary embolus. HTN - Social History Smoking Status: Never smoked Constitutional: Initial Vital Signs Temperature (C) 36.5 C 12/02/17 12:36 Heart Rate 92 12/02/17 12:36 Respiratory Rate 14 12/02/17 12:36 Blood Pressure 144/79 H 12/02/17 12:36 O2 Sat (%) 94 12/02/17 12:36 O2 Delivery Mode Room Air Allergies/Adverse Reactions: ciprofloxacin Allergy (Verified 12/02/17 12:43) Pt unsure of rxn- 20 years ago Home Medications: Medication Instructions Recorded Omeprazole [Prilosec 20 mg] 06/11/11 Levothyroxine [Synthroid 25 mcg 06/14/16 (*)] amLODIPine BESYLATE [Norvasc 2.5 06/14/16 mg (*)] Eliquis 07/06/17 Ranitidine HCl 07/06/17 Medical Decision Making - Diagnostics Imaging Results: Imaging Impressions Chest X-Ray 12/02/17 13:11 Impression: Stable negative chest.. Lumbar Spine X-Ray 12/02/17 13:11 Impression: Advanced multilevel lumbar degenerative disk disease with grade 1 degenerative spondylolisthesis at L5 is S1. Upper lumbar dextroscoliosis. ED Course/Re-evaluation: 81-year-old female with 2 complaints. The 1st complaint is of low back pain. Her neurologic exam is normal. She does not have CVA tenderness and I do not think that her pain is located in the flank, nor do I think that it represents pyelonephritis. She is being treated for urinary tract infection and has not been compliant with the medication. UA today is positive for blood, otherwise negative on dip. I am recommending that she continue the amoxicillin according to the instructions. Pain that she is experiencing is below the level of her waist, lower lumbar and right upper buttock. She does not have radicular findings on exam. I have reviewed previous x-rays including a CT scan of her lumbar spine. She has significant degenerative changes, worse on the right. I think that this is the origin of her pain. With some urging, she agreed to take a single Tylenol. She does not want to take medications. Her other concern is for cough. She has had a cough for over 24 hr. I have heard her coughing in the emergency department. She is not febrile, tachypneic , tachycardic, hypotensive, or hypoxic. Her chest x-ray does not show a pneumonia. She has known pulmonary nodules that her due to be followed by CT scan this fall. Her daughter is concerned that the cough could represent a PE. Her most recent diagnosis of PE was in May of 2017, at which time she was started on Eliquis. At that time she presented with dizziness, fatigue, and chest pain. She had a positive D-dimer at the time of that visit, prompting CT angiogram of the chest. She was evaluated in June of 2017 for cough. That evaluation included a chest x-ray and D-dimer. Her D-dimer was negative at that visit. She was diagnosed with bronchitis and recovered without further treatment. She was given cough medication but did not use it. I spoke with the patient and her daughter about an appropriate evaluation today to assess for PE in the setting of possible noncompliance with her Eliquis (the patient is certain that she has been taking her Eliquis as prescribed). The patient would like to leave the emergency department without further evaluation but agreed that she would have a D-dimer drawn. This was done and it is normal. I reviewed previous records and previous radiographs. I have reviewed today's chest x-ray and lumbar spine films. I spoke with the patient's daughter about her mother's declining memory. I have concerns about her mother's ability to safely take her medications as prescribed. As would be expected, her mother is adamant about wanting to remain in her own home and does not want any help. Her daughter is not certain whether there are advance directives. I have recommended that she talk with Dr. Erick Mayes about this. I also recommended that her mother prepare a packet that would include information about advanced directives, current medications and health history and that this be placed in a brightly colored envelope on her refrigerator for the paramedics, should emergency help be needed. - Data Points Medications Given: Discontinued Medications Acetaminophen (Tylenol) 500 mg PO EDNOW ONE Stop: 12/02/17 13:12 Last Admin: 12/02/17 13:33 Dose: 500 mg Point of Care Test Results: D-Dimer D-Dimer Collection Date 12/02/17 D-Dimer Collection Time 14:20 D-Dimer (ng/ml) 217 Urine Dip Collection Date 12/02/17 Collection Time 13:35 Specific Durand (1.002-1.030) 1.010 PH (5.0-7.5) 6.5 Leukocytes (Negative) Negative Nitrites (Negative) Negative Protein (Negative) Negative Glucose (Negative) Negative Ketones (Negative) Negative Urobilnogen (0.2-1.0 EU) 0.2 Bilirubin (Negative) Negative Blood (Negative) 1+ Departure - Departure Disposition: Home, Routine, Self-Care Clinical Impression: Cough Low back pain Qualifiers: Chronicity: chronic Back pain laterality: right Sciatica presence: without sciatica Qualified Code(s): M54.5 - Low back pain Condition: Good Additional Instructions: For your cough I would encourage you to use the pills that were given to you in June. These are called Tessalon Perles. This is a good cough medicine that might help. [place] Cold Care teas are also helpful for cough--add some honey to the tea. You should also be sure that you are drinking enough fluids. If you develop fever, shortness of breath, chest pain, or other concerning symptoms you should be re-evaluated immediately. I recommend continuing with a heating pad on your low back. It is also fine if you want to take some Tylenol. You can take up to 3000 mg of Tylenol in a 24 hour time period. Please follow up with Dr. Mayes later this week. Referrals: Kassi Stephens MD [Primary Care Provider] - As per Instructions
[2017-12-02] MEDS ORDERED: ACETAMINOPHEN 500 MG TAB PO ONE (13:11)
[2017-12-02 14:51] VITALS: BP 129/65
== END 2017-12-02 14:51 | disposition home or self-care (01) ==
LOC: CED 12:32
DX: M51.37 Other intervertebral disc degeneration, lumbosacral region (principal); M43.17 Spondylolisthesis, lumbosacral region; I10 Essential (primary) hypertension; E03.9 Hypothyroidism, unspecified; K44.9 Diaphragmatic hernia without obstruction or gangrene; M19.91 Primary osteoarthritis, unspecified site; Z87.440 Personal history of urinary (tract) infections
CPT/HCPCS: 71046-PO; 72100-PO

== ENCOUNTER 2018-01-21 13:58 | Inpatient (IN) | payer OTHER ==
[2018-01-21] MEDS ORDERED: NS 500 ML IV ONE (14:16)
--- NOTE | 2018-01-21 14:48 | EDPHY ---
H & P Stated Complaint: DIZZY X SATURDAY AND OFF BALANCE .DENIES PAIN Source: Patient Exam Limitations: No limitations - Personal History Current Tetanus Diphtheria and Acellular Pertussis (TDAP): Yes Tetanus Vaccine Date: within 10 YRS AGO - Medical/Surgical History Hx Asthma: No Hx Chronic Respiratory Disease: No Hx Diabetes: No Hx Cardiac Disease: No Hx Renal Disease: No Hx Cirrhosis: No Hx Alcoholism: No Hx HIV/AIDS: No Hx Splenectomy or Spleen Trauma: No Other PMH: med hx-. arthiritis, bursitis, GERD, HTN. surg-knee replacements. Hiatal hernia, tonsillectomy. Pulmonary embolus. HTN - Family History Significant Family History: No pertinent family hx - Social History Smoking Status: Never smoked Alcohol Use: None Drug Use: None Time Seen by Provider: 01/21/18 14:06 HPI/ROS: This patient complains of dizziness. Her daughter brought her in by private vehicle for evaluation of the symptoms explaining that over the past 3 days this patient has had intermittent episodes of dizziness described as more lightheaded than vertiginous in nature associated with dyspnea particularly dyspnea on exertion. The daughter noted that going up 4 steps shortly prior to arrival the patient felt very dyspneic and dizzy which is unusual for her. The patient was late on a couple days of her dosing of medications including her Eliquis 2.5 twice daily missing a Saturday a.m. Dose and this morning having it late. Patient's history is notable for prior PEs most recently urine half ago. Daughter also notes that the patient seemed to have difficulty with her fine motor skills in terms of getting her seatbelt on on the way here with her daughter having to assist her with this operation which is unusual for her. Her daughter who is a speech language pathologist notes no change in the patient 's language capacity. However, the patient also complains of a right eye vision change agent the past 2 days described as blurry vision that she feels is new for her. The patient was scheduled today for an outpatient CT chest here at [facility] to follow up on a pulmonary nodule but given the increased dizziness and dyspnea shortly prior to arrival the patient's daughter brought her to emergency department instead ROS: Constitutional: No fevers or chills HEENT: No recent head injuries. Neuro: No focal numbness tingling or weakness per patient Pulmonary: Occasional dry cough coming paroxysms per patient's daughter over the past 2 weeks Cardiovascular: Dyspnea on exertion as described. She denies any lower extremity swelling or calf pain. No heart palpitations noted. GI: No upper abdominal pain, nausea vomiting. She reports normal bowel movements. : Intermittent suprapubic pain per daughter, she denies any right now. History of urinary retention noted over the past 2 weeks the patient has refused placement of urinary catheter. She had a residual urinary retention of 450 per daughter last week. She denies flank pain at this time or dysuria. Integumentary 10 point review of symptoms is performed and otherwise negative with exception of pertinent positives and negatives listed in HPI and ROS (Marshall Brewer) - Social History Additional Social History: Lives alone (Marshall Brewer) - Physical Exam Exam: Physical exam: Vital signs are normal except for a O2 sat of 80% room air and mild hypotension with systolic pressure in the 90s. Also has mild tachycardia 102 General: Patient is in no acute distress. HEENT: Is no external evidence of trauma on exam. Eyes: Pupils are equal and reactive to light. Extraocular motions are intact. Optic fundi: Clear with no papilledema or hemorrhage. Nose atraumatic. Ears: Clear bilaterally with no hemotympanum. Oropharynx: No dental trauma or malocclusion. No intraoral lacerations. Eyes: Pupils are equal and reactive to light. Extraocular motions are intact. Optic fundi: Clear with no papilledema or hemorrhage. Lungs: Clear to auscultation bilaterally Neck: Supple no meningismus. Cardiac: Regular rate and rhythm no murmur gallop or rub. Abdomen: Soft nontender no organomegaly Neuro: GCS of 15. Cranial nerves II through XII intact. No focal sensory or motor deficits are appreciated. Initial differential diagnosis: Migraine, tension headache, COOKING APPLIANCE REPAIR TECHNICIAN lesion, intracranial bleed (Marshall Brewer) Constitutional: Initial Vital Signs Temperature (C) 37 C 01/21/18 14:12 Heart Rate 102 H 01/21/18 14:12 Respiratory Rate 16 01/21/18 14:12 Blood Pressure 116/73 01/21/18 14:12 O2 Sat (%) 88 L 01/21/18 14:12 O2 Delivery Mode Nasal Cannula O2 (L/minute) 2 Allergies/Adverse Reactions: ciprofloxacin Allergy (Verified 01/21/18 14:25) Pt unsure of rxn- 20 years ago Home Medications: Medication Instructions Recorded Apixaban [Eliquis] 2.5 mg PO BID 01/21/18 Calcium Carbonate [Oyster Shell 1,000 mg PO DAILY 01/21/18 Calcium 500 mg (*)] Cholecalciferol Vit D3 [Vitamin D3 1,000 units PO DAILY 01/21/18 (*)] Levothyroxine [Synthroid 25 mcg 37.5 mcg PO DAILY06 01/21/18 (*)] Omeprazole 40 mg PO DAILY 01/21/18 Ranitidine HCl [Zantac] 300 mg PO HS 01/21/18 Tamsulosin HCl [Flomax 0.4 MG (*)] 0.4 mg PO HS 01/21/18 amLODIPine BESYLATE [Norvasc 2.5 2.5 mg PO DAILY 01/21/18 mg (*)] Medical Decision Making - Diagnostics EKG Interpretation: 12 lead EKG performed at 14 20 reveals sinus rhythm at 92 Intervals: P R of 250 other intervals are normal Entiat: P of 119, QRS of 84, T of 40 degrees : Overall assessment : sinus rhythm with prolonged TN borderline right axis deviation (Marshall Brewer) ED Course/Re-evaluation: IV 500 cc normal saline over 30 min Monitor Discussion: Patient presents with dizziness, hypoxia, mild hypotension with history of PE laid on a couple of her Eliquis doses concerning for potential acute PE. Differential diagnosis also includes potential pneumonia, CHF, myocardial ischemic disease, metabolic disarray, UTI, stroke. I spoke with Dr. Kirby, [facility] emergency physician at 3:00 p.m. Regarding this patient's presentation and pending workup. Please refer to her note for disposition, diagnosis etc (Marshall Brewer) I assumed care of this patient pending results of CT scans and labs. Patient was noted to be anemic but this is chronic for her. She was also noted to have a low sodium, low potassium for which she was given oral potassium repletion and a slightly elevated creatinine which is up from 1 month ago. A lactate was within normal limits and a troponin was negative. Patient was given a fluid bolus with some improvement in her blood pressure however remained on the low side with a systolic around 100. Re-evaluation the patient's oxygen saturation was 89-91% on room air which is low. Patient was unable to urinate in the emergency department and declined a catheter although her daughter is very concerned because of the recent diagnosis of urinary retention with the urologist. Radiologist read head CT as nothing acute and her chest CT is no evidence of pulmonary embolism with a small amount of atelectasis but no evidence of pneumonia or other explanation for her low oxygen saturation. On re-evaluation the patient's blood pressure was still on the low side. The patient apparently does take Norvasc for history of hypertension. Her daughter says that she puts the pills in a box so that her mother can mix upper medicines but her mother sometimes takes them out takes him a bottle because she likes to read the bottles. Daughter was also concerned because her mother has been texting her and emailing her saying that she feels dizzy and is going to fall and has been telling her daughter her symptoms are dangerous. I discussed the results abnormal findings with the patient and her daughter. I discussed the case with Dr. Petty on-call hospitalist who agrees to accept the patient for further evaluation and treatment at [facility]. 17:00 I was called to see patient because of"tremors". I found patient sitting up in the bed with shaking that appear like rigors. Her temperature was 37.5. She denied feeling cold. She complained of some low back pain which has been a chronic problem for her. Although she is afebrile, her symptoms are concerning for rigors will go ahead and order blood cultures x2. In addition the patient was able to provide urine for urinalysis which was positive for leukocyte esterase and blood but not nitrites. Patient denies any dysuria urgency or frequency and is currently being worked up by Urology for urinary retention and frequent urinary tract infections. She had a negative kidney ultrasound per her daughter 1 week ago today and a urinalysis was negative at that time to apparently. Urine has been sent for culture, but given this is a change in the urinalysis results will go ahead and start antibiotics pending results of urine culture given the patient's recent history of retention and multiple infections. Of note shortly after this patient did spike a fever to 38. (Becky Doan) - Data Points Medications Given: Acetaminophen (Tylenol) 650 mg PO Q6HRS PRN PRN Reason: Pain, Mild/Fever, Can Take PO Stop: 07/20/18 23:54 Last Admin: 01/22/18 16:12 Dose: 650 mg Apixaban (Eliquis) 2.5 mg PO BID LORRAINE Stop: 07/20/18 23:44 Last Admin: 01/22/18 08:38 Dose: 2.5 mg Famotidine (Pepcid) 20 mg PO BID LORRAINE Stop: 07/21/18 08:59 Last Admin: 01/22/18 08:37 Dose: 20 mg Potassium Chloride/Sodium Chloride (Ns W/ 20 Kcl/L) 1,000 mls @ 100 mls/hr IV CONT LORRAINE Stop: 07/20/18 20:44 Last Admin: 01/22/18 09:50 Dose: 1,000 mls Ceftriaxone Sodium/Dextrose (Rocephin 1 Gm (Premix)) 50 mls @ 100 mls/hr IV DAILY LORRAINE PRN Reason: Protocol Stop: 02/21/18 12:59 Last Admin: 01/22/18 15:42 Dose: 50 mls Levothyroxine Sodium (Synthroid) 37.5 mcg PO DAILY06 LORRAINE Stop: 07/21/18 05:59 Last Admin: 01/22/18 06:03 Dose: 37.5 mcg Pantoprazole Sodium (Protonix) 40 mg PO DAILY LORRAINE Stop: 07/21/18 08:59 Last Admin: 01/22/18 08:38 Dose: 40 mg Prednisone (Prednisone) 40 mg PO DAILY LORRAINE Stop: 07/21/18 12:44 Last Admin: 01/22/18 15:41 Dose: 40 mg Discontinued Medications Acetaminophen (Tylenol) 1,000 mg PO EDNOW ONE Stop: 01/21/18 17:23 Last Admin: 01/21/18 17:25 Dose: 1,000 mg Amlodipine Besylate (Norvasc) 2.5 mg PO DAILY LORRAINE Stop: 07/21/18 08:59 Last Admin: 01/22/18 08:37 Dose: 2.5 mg Ampicillin (Ampicillin) 500 mg PO Q6H LORRAINE PRN Reason: Protocol Stop: 02/20/18 20:44 Last Admin: 01/22/18 08:37 Dose: 500 mg Sodium Chloride (Ns) 500 mls @ 1,000 mls/hr IV EDNOW ONE PRN Reason: Protocol Stop: 01/21/18 14:45 Last Admin: 01/21/18 14:40 Dose: 500 mls Ceftriaxone Sodium/Dextrose (Rocephin 1 Gm (Premix)) 50 mls @ 100 mls/hr IV EDNOW ONE PRN Reason: Protocol Stop: 01/21/18 17:37 Last Admin: 01/21/18 17:36 Dose: 50 mls Magnesium Sulfate/Dextrose (Magnesium Sulf 1 Gm (Premix)) 100 mls @ 100 mls/hr IV ONCE ONE Stop: 01/22/18 12:07 Last Admin: 01/22/18 12:10 Dose: 100 mls Potassium Chloride (Potassium Chloride Oral Liquid) 40 meq PO EDNOW ONE Stop: 01/21/18 16:15 Last Admin: 01/21/18 16:52 Dose: Not Given Potassium Chloride (Klor Packets) 40 meq PO EDNOW ONE Stop: 01/21/18 16:20 Last Admin: 01/21/18 16:21 Dose: 40 meq Tamsulosin HCl (Flomax) 0.4 mg PO HS LORRAINE Stop: 07/20/18 23:44 Last Admin: 01/22/18 00:28 Dose: 0.4 mg Point of Care Test Results: CBC CBC Collection Date 01/21/18 CBC Collection Time 14:45 WBC 7.1 RBC 4.1 HGB 10.8 HCT 31.7 PLT 328 Neut # 5.9 Neut 82.8 LYMPH # 1.0 LYMPH 14.4 Other WBC # 0.2 Other WBC 2.8 MCV 77.3 Chemistry 01/21/18 01/21/18 14:52 14:49 POC Sodium 132 mEq/L L mEq/L (135-145) POC Potassium 2.9 mEq/L L mEq/L (3.3-5.0) POC Chloride 92.0 mEq/L L mEq/L (97-110) POC Total CO2 24 mEq/L mEq/L (22-31) POC BUN 9 mg/dL mg/dL (7-23) POC Creatinine 1.1 mg/dL H mg/dL (0.6-1.0) POC Glucose 126 mg/dL H mg/dL (70-100) POC Calcium 9.0 mg/dL mg/dL (8.5-10.4) POC Troponin I 0.01 ng/mL ng/mL (0.00-0.08) Blood Gas/Lactic Acid-Venous 01/21/18 15:04 POC Lactic Acid Jatin 1.4 mmol/L mmol/L (0.7-2.1) Urine Dip Collection Date 01/21/18 Collection Time 16:40 Specific Goodman (1.002-1.030) 1.010 PH (5.0-7.5) 6.0 Leukocytes (Negative) 2+ Nitrites (Negative) Negative Protein (Negative) 1+ Glucose (Negative) Negative Ketones (Negative) Negative Urobilnogen (0.2-1.0 EU) 0.2 Bilirubin (Negative) Negative Blood (Negative) 2+ Departure - Departure Disposition: [facility] Acute Clinical Impression: Dizziness, Hypokalemia, Hyponatremia, Hypoxia, Urinary retention Hypotension Qualifiers: Hypotension type: unspecified hypotension type Qualified Code(s): I95.9 - Hypotension, unspecified Urinary tract infection Qualifiers: Urinary tract infection type: site unspecified Hematuria presence: with hematuria Qualified Code(s): N39.0 - Urinary tract infection, site not specified Condition: Fair
[2018-01-21] MEDS ORDERED: POTASSIUM CL 20 MEQ/15 ML UDCUP PO ONE (16:14)
[2018-01-21] MEDS ORDERED: POTASSIUM CL 20 MEQ PKT ONE (16:17)
[2018-01-21] MEDS ORDERED: POTASSIUM CL 20 MEQ PKT PO ONE (16:19)
[2018-01-21] MEDS ORDERED: ACETAMINOPHEN 500 MG TAB PO ONE (17:22)
[2018-01-21] MEDS ORDERED: PROTOCOL MAGNESIUM 1 DOSE IV PRN (20:34)
[2018-01-21] MEDS ORDERED: PROTOCOL POTASSIUM 1 DOSE MISC PRN (20:34)
--- NOTE | 2018-01-21 21:17 | GHP ---
DATE OF ADMISSION: 01/21/2018 CHIEF COMPLAINT: Presyncope. HISTORY OF PRESENT ILLNESS: This is an 82-year-old female who presented to the [facility] urgent care [facility] today after she had been feeling unsteady and feeling lightheaded with standing. This has been go ing on since Saturday. The patient has recently had multiple urinary tract infections. The patient' s daughter tells me that she does have pain with urination; however, the patient kind of denies this to me. In the ED she was noted to have a fever, as well as some rigors, and was ultimately diagnosed with a urinary tract infection and transferred to [facility] for further t reatment. The patient was recently seen by [facility], where she was noted to have urinary retention. At t hat time a Fleming catheter was recommended; however, was refused by the patient. Urine culture from [facility] 2017, grew Enterococcus faecalis, sensitive to ampicillin. PAST MEDICAL HISTORY: 1. Pulmonary embolism and DVT. 2. Hypertension. 3. Hypothyroidism. 4. Memory loss. 5. Arthritis. 6. Hiatal hernia. 7. Multiple urinary tract infections. PAST SURGICAL HISTORY: 1. Tonsillectomy. 2. Tubal ligation. 3. Bilateral total knee arthroplasty. 4. Ankle surgery. 5. Hysterectomy. HOME MEDICATIONS: Amlodipine, ranitidine, omeprazole, Synthroid, Eliquis. ALLERGIES: Ciprofloxacin. SOCIAL HISTORY: The patient lives independently in [place]. Denies any alcohol, tobacco, or illicit drug use. FAMILY HISTORY: Reviewed and noncontributory. REVIEW OF SYSTEMS: Comprehensive 10-point review of systems was done and was negative, except for as mentioned in the HPI and below. CARDIOVASCULAR: Denies chest pain. PULMONARY: Reports dry nonprod uctive cough for the past few weeks. PHYSICAL EXAM: VITAL SIGNS: Blood pressure 106/50, pulse 77, respiratory rate 14, O2 saturation 96% on 3.5 L. Temperature afebrile. T max was 38 at [facility]. GENERAL: No acute distress. HEAD: Normoce phalic, atraumatic. EYES: PERRLA. Sclerae anicteric. MOUTH: Moist mucous membranes. NECK: Supp le. No lymphadenopathy. CARDIOVASCULAR: S1, S2, no murmurs, rubs, clicks, gallops. No JVD. No lo wer extremity edema. PULMONARY: Lungs are clear. No wheezes, rales, or rhonchi. Slightly diminish ed breath sounds in bilateral bases. ABDOMEN: Soft, nontender, nondistended. No guarding or reboun d tenderness. Normoactive bowel sounds. EXTREMITIES: No clubbing or cyanosis. NEURO: Cranial ner ves 2-12 grossly intact. No focal motor or sensory deficits. SKIN: Clear. No rashes. DIAGNOSTICS: Head CT showed no evidence of acute intracranial hemorrhage or mass. CTA of the chest n egative for PE. Some ground-glass attenuation in the inferior lateral aspect of the left upper lobe, has not changed much since the previous study. See report for full details. Has stable bilateral p ulmonary nodules. Repeat imaging was recommended in 12 months. WBC 6.36, hemoglobin 11.4, hematocri t 34.9, platelets 341. Sodium 132, potassium 2.9. Creatinine 1.1, glucose 126. Venous lactate 1.4. Per ER report, the patient had a urinalysis that was positive for leukocyte esterase and blood, but not nitrites. This study does not show up in [employer]. EKG, which I visualized and personally inter preted, sinus rhythm, rate 92 beats per minute. No acute ischemic changes. ASSESSMENT AND PLAN: This is an 82-year-old female, presenting with: 1. Lightheadedness, presyncope, in the setting of fever, rigors, and recent urinary tract infections . Plan: The patient will be placed on observation. She has been started on ceftriaxone. The urine has been sent for culture. Will monitor for signs and symptoms of severe sepsis. Follow culture re sulmiguel. 2. Dry nonproductive cough. Plan: Continue to monitor oxygenation status. I suspect her cough is likely post viral reactive airway disease. Consider nebulizer treatments. 3. Hypokalemia, which could be contributing to her presyncope and overall malaise. Plan: Replace pe r protocol. 4. Reported history of frequent urinary tract infections and urinary retention. Currently being pipe luated by [facility]. 5. Plan: I have asked her nurse to perform a bladder scan and will consider catheterization as mario cated. I will ask my covering colleagues to consult Urology in the morning to render an opinion, if she is indeed retaining urine. The patient requests to be full code status. /[id number]/MODL
[2018-01-21] MEDS: NS W/ 20 KCl/L 1,000 ML IV SCH (23:16)
[2018-01-21] MEDS: AMPICILLIN TRIHYDRATE 500 MG CAP PO SCH (23:18)
[2018-01-21] MEDS ORDERED: TAMSULOSIN HCL 0.4 MG CAP PO SCH (23:45)
[2018-01-22] MEDS: APIXABAN 2.5 MG TAB PO SCH ×3 (00:28→21:26)
[2018-01-22] MEDS: ACETAMINOPHEN 325 MG TAB PO PRN ×3 (00:29→16:12)
[2018-01-22] MEDS: AMPICILLIN TRIHYDRATE 500 MG CAP PO SCH ×2 (03:15→08:37)
[2018-01-22 04:40] LABS: PLATELET COUNT 288 10^3/uL (150-400)
[2018-01-22] MEDS: LEVOTHYROXINE 25 MCG TAB PO SCH (06:03)
[2018-01-22] MEDS: FAMOTIDINE 20 MG TAB PO SCH ×2 (08:37→21:26)
[2018-01-22] MEDS: PANTOPRAZOLE SODIUM 40 MG TAB PO SCH (08:38)
[2018-01-22] MEDS: NS W/ 20 KCl/L 1,000 ML IV SCH ×2 (09:50→21:26)
[2018-01-22] MEDS ORDERED: MAGNESIUM SULF 1 GM/DEXTROSE 100 ML IV ONE (11:08)
--- NOTE | 2018-01-22 12:29 | HOSPPROG ---
Hospitalist Progress Note Assessment/Plan: #Pre-Syncope due to volume deficit and sepsis #Sepsis, findings: Fever + Tachycardia + source of infection #Klebsiella Pneumonia Bacteremia, Acute UTI -source presumably Urine, although has been c/o of cough -change abx back to Rocephin. Stop Ampicillin #Cough: no e/o Pneumonia per CT. May have Reactive component to it. NO e/o of volume overloaded -will try Prednisone burst -check CXR in a.m. #Hyponatremia, due to volume deficit #Urinary Retention: will place Fleming -She is requesting a Urology Consultation. I will discuss with Urology #HTN: soft BP. -Hold Amlodipine #Hx of P.E. -on Eliquis. Unclear of why she is on the low dose. ?Fall risk. Will leave to 2.5mg BID total critical care time spent on this pt with criteria for sepsis with hypotension and e/o bacteremia is 40 min. Includes 2 face to face encounters and bedside rounding with pharmacist, nursing, and disability case manager Subjective: somewhat confused. low bp. no leg or hand swelling Objective: Vital Signs Temp Pulse Resp BP Pulse Ox 36.7 C 72 16 109/54 L 91 L 01/22/18 12:00 01/22/18 12:00 01/22/18 12:00 01/22/18 12:00 01/22/18 12:00 Microbiology 01/21/18 17:20 Blood Panel (PCR) - Final Blood Klebsiella Pneumoniae Laboratory Results 01/22/18 03:40 01/22/18 03:40 01/21/18 01/22/18 01/23/18 05:59 05:59 05:59 Intake Total 1747 200 Output Total 1025 900 Balance 722 -700 - Physical Exam Constitutional: no apparent distress Eyes: PERRL Ears, Nose, Mouth, Throat: moist mucous membranes, dry mucous membranes Cardiovascular: regular rate and rhythym, No edema Respiratory: no respiratory distress, rhonchi Gastrointestinal: normoactive bowel sounds, soft, non-tender abdomen Skin: warm Musculoskeletal: generalized weakness Neurologic: No AAOx3 Psychiatric: interacting appropriately, not anxious, encephalopathic Lymph, Heme, Immunologic: No petechiae ICD10 Worksheet Patient Problems: Problems Problem Status Onset Dizziness Acute Hypokalemia Acute Hyponatremia Acute Hypotension Acute Hypoxia Acute Urinary retention Acute Urinary tract infection Acute GERD (gastroesophageal reflux disease) Acute Hiatal hernia Acute Pulmonary embolus Acute
--- NOTE | 2018-01-22 13:23 | ASMTCMCOM ---
CM Note CM Note Notes: Pts case discussed in tx rounds. Pt is a 82 y/o female admitted for dizziness, hypoxia, hypokalemia, hyponatremia, and an UTI. Pt is currently positive for bacteremia and being treated with IV rocephin. Therapies have been ordered and awaiting recommendations. Needs are TBD at this time. CM available for changes. Plan: TBD Date Signed: 01/22/2018 01:22 PM Electronically Signed By:MATY Santiago
--- NOTE | 2018-01-22 15:28 | GCON ---
DATE OF CONSULTATION: 01/22/2018 REASON FOR CONSULT: Urinary retention. HISTORY OF PRESENT ILLNESS: This is an 82-year-old female who has been seen in my office recently. She presented to the emergency room with confusion and weakness, was found to have a bloodstream infection consistent with Klebsiella, source unknown at this time. During her evaluation, it was found that she has urinary retention, hence the consult with us. This patient was seen in my office on 01/15/2018. At that visit, she had 547 mL of urine in her bladder and I had recommended a catheter, discussed my strong concerns with not putting a catheter in place. Patient declined. I did do a renal ultrasound on her at that time, which showed no hydronephrosis on her kidneys. We sent a molecular urine culture test that came back negative. At that point, again our office called the patient and recommended a catheter which she again declined. PAST MEDICAL HISTORY: Pulmonary embolus, DVT, hypertension, hypothyroidism, memory loss, arthritis, hiatal hernia, urinary tract infection. PAST SURGICAL HISTORY: Tonsillectomy, tubal ligation, total knee arthroplasty, ankle surgery, hysterectomy. HOME MEDICATIONS: Amlodipine, ranitidine, omeprazole, Synthroid, Eliquis. ALLERGIES: Cipro. SOCIAL HISTORY: Lives independently. Daughter is present in room. Denies alcohol, tobacco. FAMILY HISTORY: Noncontributory. REVIEW OF SYSTEMS: A 10-point review of systems negative except as mentioned in HPI. PHYSICAL EXAM: VITAL SIGNS: Blood pressure is 109/54, heart rate is 72, O2 is 91 on room air, temperature is 36.7. General: well developed well nourished women in no acute distress HEENT: NCAT, EOMI Neck: supple, no LAD Resp: normal breath sounds, no accessory muscle use Cardiac: regular rate and rhyhtm, no obvious JVD GI: abd soft, non distended, non ttp, no hepatosplenomegaly : no cva tenderness, no bladder distension or tenderness to palpation inteug: no rashes or lesions noted, normal skin color MS: supine while examined, moving 4 extremities without difficulty Neuro: alert and oriented LABS: Her urinalysis was positive for blood, leukocytes, but no nitrates. Urine culture is pending. Her chemistry: Her sodium is 129, her potassium is 4.1, her chloride is 98, carbon dioxide 22, anion gap 9, BUN 11, creatinine 0.9 , GFR 60, glucose is 100. Lactic acid 1.4. White blood cell count 7.19, hemoglobin 9.8, hematocrit 29.5. Her blood culture preliminary positive for gram-negative lokesh, presumptive diagnosis is Klebsiella pneumoniae. ASSESSMENT: Urinary retention, sepsis. PLAN: I discussed the case with the patient and her daughter, again recommended a catheter be placed. The patient was resistant, but did agree to have catheter placed. She understands that I suspect she may need a catheter long-term to appropriately drain her bladder. She was resistant to this idea, but does agree to have one placed while she is here in the hospital and consider going home with one. At this point, the source of her infection would be partly depending upon the urine culture and whether or not she did develop a urinary tract infection between 01/15 visit in my office and now. We will continue to follow along closely this patient. I have discontinue her Flomax since the patient did have lightheadedness and we will be putting a catheter in. /[id number]/MODL MTDD
[2018-01-22] MEDS: predniSONE 20 MG TAB PO SCH (15:41)
[2018-01-23 04:50] LABS: PLATELET COUNT 297 10^3/uL (150-400)
[2018-01-23] MEDS: LEVOTHYROXINE 25 MCG TAB PO SCH (05:49)
[2018-01-23] MEDS: NS W/ 20 KCl/L 1,000 ML IV SCH ×2 (07:48→09:19)
--- NOTE | 2018-01-23 09:54 | ASMTCMCOM ---
CM Note CM Note Notes: Pts case discussed in tx rounds. CM met w/ pt and julito for dispo planning. Pts daughter is a speech pathologist. PT is recommending home w/ 24hr supervision (but was recommending SNF but pt refused). OT are recommending HC. Pt has used [facility] in the past and would like to use them. Daughter is requesting for [facility] to be ordered. CM communicated this w/ Dr. Sheehan. CM to follow. Plan: [facility]; PT, OT, RN Date Signed: 01/23/2018 09:53 AM Electronically Signed By:MATY Santiago
[2018-01-23] MEDS: predniSONE 20 MG TAB PO SCH (10:03)
[2018-01-23] MEDS: FAMOTIDINE 20 MG TAB PO SCH ×2 (10:03→21:54)
[2018-01-23] MEDS: APIXABAN 2.5 MG TAB PO SCH ×2 (10:03→21:54)
[2018-01-23] MEDS: PANTOPRAZOLE SODIUM 40 MG TAB PO SCH (10:03)
--- NOTE | 2018-01-23 12:42 | SOAPPROG ---
SOAP Progress Note Assessment/Plan: Assessment: Urinary retention UTI/Sepsis Plan: Given hydronephrosis and + bacterial UTI, highly recommend king catheter be left in place. At this point, patient and daughter both agree that catheter will remain. Options for management include leaving king catheter in exterminator helper termite or try removing catheter after patient has been discharged from hospital along with close followup of PVR. 01/23/18 12:39 Subjective: Patient is not thrilled with but tolerating king catheter. Objective: Vital Signs Temp Pulse Resp BP Pulse Ox 36.7 C 71 18 119/80 94 01/23/18 11:34 01/23/18 11:34 01/23/18 11:34 01/23/18 11:34 01/23/18 11:34 Microbiology 01/21/18 17:20 Blood Panel (PCR) - Final Blood Klebsiella Pneumoniae 01/21/18 16:45 Urine Culture - Final Urine,Clean Catch Klebsiella Pneumoniae Ssp Pneu Laboratory Results 01/23/18 03:36 01/23/18 03:36 01/22/18 01/23/18 01/24/18 05:59 05:59 05:59 Intake Total 1747 3024 850 Output Total 1025 4500 Balance 722 -1476 850 Physical Exam - Physical Exam General Appearance: alert, no apparent distress EENT: normal ENT inspection Respiratory: normal breath sounds, No respiratory distress Cardiac/Chest: No JVD Abdomen: other (king catheter draining clear urine) Skin: normal color Neuro/Psych: no motor/sensory deficits, alert ICD10 Worksheet Patient Problems: Problems Problem Status Onset Dizziness Acute Hypokalemia Acute Hyponatremia Acute Hypotension Acute Hypoxia Acute Urinary retention Acute Urinary tract infection Acute GERD (gastroesophageal reflux disease) Acute Hiatal hernia Acute Pulmonary embolus Acute
[2018-01-23] MEDS ORDERED: LACTULOSE 20 GM/30 ML UDCUP PO PRN (13:09)
[2018-01-23] MEDS ORDERED: BISACODYL 10 MG SUPP PR PRN (13:09)
[2018-01-23] MEDS ORDERED: POLYETHYLENE GLYCOL 3350 17 GM PKT PO PRN (13:09)
--- NOTE | 2018-01-23 13:12 | HOSPPROG ---
Hospitalist Progress Note Assessment/Plan: #Pre-Syncope due to volume deficit and sepsis #Sepsis, findings: Fever + Tachycardia + source of infection, resolving #Klebsiella Pneumonia Bacteremia, Acute UTI -source is Urine -cont Rocephin. -repeat blood cultures tomorrow for clearance #Cough: no e/o Pneumonia per CT. May have Reactive component to it. NO e/o of volume overloaded -better with Prednisone. Cont #Hyponatremia, due to volume deficit, improving #Urinary Retention: King was placed. Urology is following #HTN: -cont to hold Amlodipine #Hx of P.E. -on Eliquis. Unclear of why she is on the low dose. ?Fall risk. Will leave to 2.5mg BID Plan: better today stop IVF cont per above Subjective: no cp or sob. no n/v. good urine output Objective: Vital Signs Temp Pulse Resp BP Pulse Ox 36.7 C 71 18 119/80 94 01/23/18 11:34 01/23/18 11:34 01/23/18 11:34 01/23/18 11:34 01/23/18 11:34 Microbiology 01/21/18 17:20 Blood Panel (PCR) - Final Blood Klebsiella Pneumoniae 01/21/18 16:45 Urine Culture - Final Urine,Clean Catch Klebsiella Pneumoniae Ssp Pneu Laboratory Results 01/23/18 03:36 01/23/18 03:36 01/22/18 01/23/18 01/24/18 05:59 05:59 05:59 Intake Total 1747 3024 850 Output Total 1025 4500 Balance 722 -1472 850 - Physical Exam Constitutional: no apparent distress Eyes: PERRL Ears, Nose, Mouth, Throat: moist mucous membranes, hearing normal Cardiovascular: regular rate and rhythym, No edema Respiratory: no respiratory distress, no rales or rhonchi, reduced air movement Gastrointestinal: normoactive bowel sounds Genitourinary: king in urethra Skin: warm, normal color Neurologic: AAOx3 Psychiatric: interacting appropriately, not anxious, encephalopathic Lymph, Heme, Immunologic: No petechiae ICD10 Worksheet Patient Problems: Problems Problem Status Onset Dizziness Acute Hypokalemia Acute Hyponatremia Acute Hypotension Acute Hypoxia Acute Urinary retention Acute Urinary tract infection Acute GERD (gastroesophageal reflux disease) Acute Hiatal hernia Acute Pulmonary embolus Acute
--- NOTE | 2018-01-23 14:30 | PDMN ---
Medical Necessity Medical necessity: Changed to IP as of 01/22/18 per MD and MCG M-160 (sepsis); los >2 mn for ongoing management of sepsis with bacteremia.
--- NOTE | 2018-01-23 14:57 | ASMTCMCOM ---
CM Note CM Note Notes: CM spoke to pts daughter 1 on . PT is recommending home w/ 24hr supervision. Pt does not want to have strangers in her house. Daughter reports that her and her work and cannot be there 22/10. CM believes that pt is resistant to the idea of SNF. Daughter would like ref[facility]. Referrals sent. Daughter would like to be notified SUJATHA if pt is being discharged. [facility] saw pt and did a cog eval. Pt was confused overnight. Daughter reports that she has MDPOA stating that she can make decisions for pt when she cannot. Daughter will tour [facility]. Daughter will not be able to be able to be present during rounds tomorrow. CM to follow. Plan: TBD Date Signed: 01/23/2018 02:56 PM Electronically Signed By:MATY Santiago
[2018-01-23] MEDS: SENNOSIDES/DOCUSATE SODIUM TAB PO SCH (21:54)
[2018-01-24] MEDS: LEVOTHYROXINE 25 MCG TAB PO SCH (06:38)
[2018-01-24] MEDS ORDERED: MAGNESIUM SULF 1 GM/DEXTROSE 100 ML IV ONE (07:38)
[2018-01-24] MEDS: predniSONE 20 MG TAB PO SCH (10:08)
[2018-01-24] MEDS: PANTOPRAZOLE SODIUM 40 MG TAB PO SCH (10:08)
[2018-01-24] MEDS: SENNOSIDES/DOCUSATE SODIUM TAB PO SCH ×2 (10:08→20:04)
[2018-01-24] MEDS: FAMOTIDINE 20 MG TAB PO SCH ×2 (10:08→20:04)
[2018-01-24] MEDS: APIXABAN 2.5 MG TAB PO SCH ×2 (10:08→20:03)
[2018-01-24 10:42] LABS: PLATELET COUNT 387 10^3/uL (150-400)
[2018-01-24] MEDS ORDERED: NS W/ 20 KCl/L 1,000 ML IV SCH (13:15)
--- NOTE | 2018-01-24 13:20 | HOSPPROG ---
Hospitalist Progress Note Assessment/Plan: #Pre-Syncope due to volume deficit and sepsis #Sepsis, findings: Fever + Tachycardia + source of infection, resolving #Klebsiella Pneumonia Bacteremia, Acute UTI -source is Urine -cont Rocephin. -repeat blood cultures tomorrow for clearance #Cough: no e/o Pneumonia per CT. May have Reactive component to it. NO e/o of volume overloaded -better with Prednisone. Cont x 5 days total #Hyponatremia, due to volume deficit, resolved #Urinary Retention: Fleming was placed. Urology is following #HTN: -cont to hold Amlodipine #Hx of P.E. -on Eliquis. Unclear of why she is on the low dose. ?Fall risk. Will leave to 2.5mg BID Plan: A code blue was called due to unresponsiveness. The pt's BP had dropped abruptly to 60's/40's. It was previously in the 150's systolic. As I arrived to the floor her BP had normalized w/o any intervention. She did not have any resp sx's. She did not have chest pain. I ordered a CXR and this was reviewed by me and there is no e/o pneumonia. She has not had any Fever. She was started on a 500ml bolus and BP have remained stable in the 140's systolic. She will get an additional liter slowly. She is not symptomatic blood cultures have been sent will cont with Rocephin for now Fleming cont to drain she is not a good candidate for return to home. she will need SNF total critical care time is 40 minutes Subjective: called to bedside for code blue. pt was unresponsive. now denies cp , sob. Objective: Vital Signs Temp Pulse Resp BP Pulse Ox 36.8 C 79 18 128/78 H 93 01/24/18 12:00 01/24/18 12:00 01/24/18 12:00 01/24/18 12:00 01/24/18 12:00 Laboratory Results 01/24/18 10:20 01/24/18 03:38 01/23/18 01/24/18 01/25/18 05:59 05:59 05:59 Intake Total 2824 1550 Output Total 5573 5673 Balance -915 -4638 - Physical Exam Constitutional: no apparent distress Eyes: PERRL Ears, Nose, Mouth, Throat: moist mucous membranes, hearing normal Cardiovascular: regular rate and rhythym, No edema Respiratory: no respiratory distress, no rales or rhonchi, clear to auscultation Gastrointestinal: normoactive bowel sounds, soft, non-tender abdomen Skin: warm Neurologic: No AAOx3 Psychiatric: encephalopathic Lymph, Heme, Immunologic: petechiae ICD10 Worksheet Patient Problems: Problems Problem Status Onset Dizziness Acute Hypokalemia Acute Hyponatremia Acute Hypotension Acute Hypoxia Acute Urinary retention Acute Urinary tract infection Acute GERD (gastroesophageal reflux disease) Acute Hiatal hernia Acute Pulmonary embolus Acute
--- NOTE | 2018-01-24 16:03 | ASMTCMCOM ---
CM Note CM Note Notes: 01/24/2018 Case Management Note Met w/pt and daughter Rosario (SARAN) [phone] and family friend Ivette to discuss discharge plan. After lengthy discussion pt agreed to [facility]. Contacted Germaine at who is holding bed H7 with tentative plan for pt to d/c tomorrow to . Case Management d/c poc: SNF rehab. Case Management to follow. Date Signed: 01/24/2018 04:03 PM Electronically Signed By:Anyi Branch RN
[2018-01-25 04:15] LABS: PLATELET COUNT 386 10^3/uL (150-400)
--- NOTE | 2018-01-25 09:12 | HOSPPROG ---
Hospitalist Progress Note Assessment/Plan: #Klebsiella bacteremia: transition to orals. Complete 10 days total LQ. I explained risk of encephalopathy, tendonitis and achilles rupture with patient and daughters -reviewed Cipro allergy with patient. She stated it made her feel weird. No SOB/ throat swelling or rash. #Sepsis: resolved #Hypotension: philly burroughs called yesterday for unresponsiveness. BP improved with IVFs #Urinary retention: FU in 3 weeks with Urology to trial a pull; may need lifetime #HTN: holding BP meds #h/o PE: no acute thrombosis #Cough #Bilateral pulm nodules: stable. Repeat imaging in 12 months # Subjective: no chest pain, SOB Objective: Vital Signs Temp Pulse Resp BP Pulse Ox 36.8 C 86 18 101/85 H 95 01/25/18 04:00 01/25/18 08:00 01/25/18 08:00 01/25/18 08:00 01/25/18 08:00 Laboratory Results 01/25/18 03:32 01/25/18 03:32 01/24/18 01/25/18 01/26/18 05:59 05:59 05:59 Intake Total 1550 2295 Output Total 5970 2450 Balance -4425 -155 - Physical Exam Constitutional: no apparent distress Eyes: PERRL Ears, Nose, Mouth, Throat: moist mucous membranes Cardiovascular: regular rate and rhythym Gastrointestinal: normoactive bowel sounds Genitourinary: king in urethra Skin: warm Neurologic: CN II-XII Intact ICD10 Worksheet Patient Problems: Problems Problem Status Onset Dizziness Acute Hypokalemia Acute Hyponatremia Acute Hypotension Acute Hypoxia Acute Urinary retention Acute Urinary tract infection Acute GERD (gastroesophageal reflux disease) Acute Hiatal hernia Acute Pulmonary embolus Acute
[2018-01-25] MEDS: LEVOTHYROXINE 25 MCG TAB PO SCH (11:11)
[2018-01-25] MEDS: predniSONE 20 MG TAB PO SCH (11:12)
[2018-01-25] MEDS: APIXABAN 2.5 MG TAB PO SCH (11:12)
[2018-01-25] MEDS: FAMOTIDINE 20 MG TAB PO SCH (11:13)
[2018-01-25 11:14] VITALS: BP 118/70
[2018-01-25] MEDS: SENNOSIDES/DOCUSATE SODIUM TAB PO SCH (11:14)
--- NOTE | 2018-01-25 14:02 | PDIAF ---
- Diagnosis Diagnosis: Klebsiella bacteremia Code Status: Full Code - Medication Management Discharge Medications: Medications to Continue on Transfer Apixaban [Eliquis] 2.5 mg PO BID 01/21/18 [Last Taken 01/20/18] Calcium Carbonate [Oyster Shell Calcium 500 mg (*)] 1,000 mg PO DAILY 01/21/18 [ Last Taken 01/20/18] Cholecalciferol Vit D3 [Vitamin D3 (*)] 1,000 units PO DAILY 01/21/18 [Last Taken 01/20/18] Levothyroxine [Synthroid 25 mcg (*)] 37.5 mcg PO DAILY06 01/21/18 [Last Taken ] Omeprazole 40 mg PO DAILY 01/21/18 [Last Taken 01/20/18] Ranitidine HCl [Zantac] 300 mg PO HS 01/21/18 [Last Taken 01/20/18] Tamsulosin HCl [Flomax 0.4 MG (*)] 0.4 mg PO HS 01/21/18 [Last Taken 01/20/18] Acetaminophen [Tylenol 325mg (*)] 650 mg PO Q6HRS PRN tab 01/25/18 [Last Taken Unknown] levOFLOXACIN [levAQUIN (*)] 750 mg PO DAILY 6 Days #10 tab 01/25/18 [Last Taken Unknown] predniSONE 40 mg PO DAILY tablet 01/25/18 [Last Taken Unknown] Discharge Medications: Refer to the Discharge Home Medication list for PRN reason. - Orders Services needed: Registered Nurse, Certified Manager Imaging, Master Outreach Representative , Physical Therapy, Occupational Therapy, Speech Language Pathologist Diet Recommendation: no restrictions on diet Diet Texture: Regular Texture Diet Additional Instructions: 1. Follow blood pressure: once tolerates, can restart home Norvasc 2.5mg daily 2. Continue antibiotics through 01/30 3. Pulmonary nodules: stable. Repeat imaging 12 months - Follow Up Care Current Providers and Referrals: Amna Hernandez PAC [Physician Delphi Developer] - follow up in 2 weeks Kassi Stephens MD [Primary Care Provider] - As per Instructions
--- NOTE | 2018-01-25 14:25 | GDS ---
DISCHARGE DIAGNOSES: 1. Urinary retention. 2. Sepsis. 3. Klebsiella bacteremia. 4. Urinary tract infection. 5. Hypotension. 6. Cough. 7. Hyponatremia. 8. History of pulmonary embolism. 9. Presyncope. 10. Hypothyroidism. 11. Memory loss. 12. Arthritis. CONSULTATIONS: Urology. HISTORY OF PRESENT ILLNESS: An 82-year-old female with history of recurrent UTIs, pulmonary embolism, hypertension, who presented to [facility]gent [facility] after feeling unsteady and lightheaded with standing. She had been treated for several urinary tract infections recently. In the ER, she was noted to have a fever and some rigors and transferred to [facility]. She was seen at [facility] where she was noted to have urinary retention. At that time, a Fleming was recommended but patient refused. Urine culture December 31 grew enterococcus sensitive to ampicillin. HOSPITAL COURSE BY PROBLEM: 1. Sepsis: Secondary to UTI, Klebsiella bacteremia. Ceftriaxone here, discharged on Levaquin for a total of 10 days of antibiotics. I reviewed the risks of Levaquin with the patient and her daughter at the bedside. This included encephalopathy, tendinitis and Achilles rupture and they were agreeable to continue treatment. I also reviewed her ciprofloxacin allergy and patient states it made her feel weird, but denied any anaphylactic symptoms such as throat closing or shortness of breath. 2. Hypotension. Blood pressure dropped to 60/41 yesterday but improved without intervention. Intravenous fluids were started at that time. Her blood pressure remained stable, currently 118/70. She denies any chest pain. No new fevers. Hold amlodipine until blood pressure warrants it. No evidence of a PE on CTA. Troponin negative. 3. Hypertension. Hold amlodipine. Can resume when blood pressure tolerates at her home dose of 2.5 mg. 4. Hypothyroidism: Synthroid. 5. History of pulmonary embolism, DVT. She is on Eliquis. 6. Urinary retention: Seen previously at [facility]. Recommend a Fleming but she declined at that time. This was placed during this stay. Recommend follow up in 2 to 3 weeks for trial of a pull, but she may need this permanently. 7. Cough. No evidence of pneumonia on CT. No evidence of volume overload. May have a reactive component. This is improved with prednisone. Will continue for 2 more days. 8. Hypovolemic hyponatremia, resolved with fluids. 9. Presyncope: Secondary to sepsis and volume depletion. She is currently asymptomatic. 10. Patient is stable for discharge to [facility] to continue rehab. 11. Cognitive impairment: Per daughters, can be forgetful at home. Monitor closely with Levaquin. NEW MEDICATIONS: 1. Levaquin 750 mg daily through 01/30/2018. Monitor for encephalopathy. 2. Hold Norvasc 2.5 mg until blood pressure improves. 3. Follow up with Urology in 2-3 weeks for trial of pull of Fleming. PHYSICAL EXAM: VITAL SIGNS: Today temperature 36.4, blood pressure 118/70, heart rates 70s, respiratory rate 14, 95% on room air. GENERAL: She is well appearing, sitting in bed, no acute distress. HEENT: Moist mucous membranes. CV: Regular rate and rhythm. LUNGS: Clear anteriorly. ABDOMEN: Soft, nontender. : Fleming with yellow urine. NEURO: 2 through 12 intact. PSYCH: She is answering questions appropriately. Time spent on discharge: Greater than 35 minutes at the bedside with patient and daughters, counseling on medications and followup plan and coordinating with Case Management. /[id number]/MODL MTDD
--- NOTE | 2018-01-25 15:06 | ASMTLACE ---
LACE Length of stay for Answers: 3 days current admission Acuity / Level of Answers: Yes Care: Did the patient have an inpatient admission? Comorbidities - select Answers: Other Notes: HTN; GERD; PEs all that apply # of Emergency department Answers: 3-4 visits in the last 6 months Score: 10 Date Signed: 01/25/2018 03:05 PM Electronically Signed By:Anyi Branch RN
--- NOTE | 2018-01-25 15:13 | ASMTDCNOTE ---
Case Management Discharge Discharge Order Complete? Answers: Yes Patient to Obtain Answers: Other Notes: SNF Medications Transportation Arranged Answers: Other Notes: [facility] transport Faxed Final Orders Answers: Yes Notes: both allscripts and [employer] Agency/Facility Transfer Answers: Yes Notes: to [facility] Report Printed & Faxed to Receiving Agency Family Notified Answers: Yes Notes: in room Discharge Comments Notes: 01/25/2018 Case Management Note Pt d/c to [facility] rehab. Faxed orders to [facility] via [employer] and [employer]. Arranged transport through [employer] transport [employer] [facility] at request of [facility]. Notified family of jim mason. RN called report. Family in room. Case Management d/c: [facility]. Date Signed: 01/25/2018 03:13 PM Electronically Signed By:Anyi Branch RN
--- NOTE | 2018-01-25 15:14 | ASDISCHSUM ---
Discharge Information Plan Status:SNF Medically Cleared to Leave:01/25/2018 Discharge Date:01/25/2018 CM D/C Disposition:Custodial Facility ADT D/C Disposition:Custodial Facility Projected Discharge Date:01/24/2018 11:00 AM Transportation at D/C:Wheelchair Van Discharge Delay Reason: Follow-Up Date:01/24/2018 11:00 AM Discharge Slot: Final Diagnosis: Placement Information Referral Type:*Home Health Care Services Referral ID:[id number] Provider Name: Address 1: Phone Number: Address 2: Fax Number: City: Selection Factors: State: Referral Type:*Care Home/SNF Referral ID:[id number] Provider Name:[facility] Address 1:[address] Address 2: City:[place] Selection Factors: State:[place] Patient Contact Information Contact Name:CLARKE Relationship:Daughter Address:[address] City:[place] Alternate Phone: State/Zip Code:[place] [address] Email: Financial Information Financial Class:Medicare Primary Plan Desc:MEDICARE INPATIENT Primary Plan Number:[id number] Secondary Plan Desc:[employer] Secondary Plan Number:[id number] Assessment Information LACE LACE Length of stay for Answers: 3 days current admission Acuity / Level of Answers: Yes Care: Did the patient have an inpatient admission? Comorbidities - select Answers: Other Notes: HTN; GERD; PEs all that apply # of Emergency department Answers: 3-4 visits in the last 6 months Score: 10 Date Signed: 01/25/2018 03:05 PM Electronically Signed By:Anyi Branch RN [facility] CM Progress Note CM Note CM Note Notes: Pts case discussed in tx rounds. Pt is a 82 y/o female admitted for dizziness, hypoxia, hypokalemia, hyponatremia, and an UTI. Pt is currently positive for bacteremia and being treated with IV rocephin. Therapies have been ordered and awaiting recommendations. Needs are TBD at this time. CM available for changes. Plan: TBD Date Signed: 01/22/2018 01:22 PM Electronically Signed By:MATY Santiago [facility] Progress Note CM Note CM Note Notes: Pts case discussed in tx rounds. CM met w/ pt and julito for dispo planning. Pts daughter is a speech pathologist. PT is recommending home w/ 24hr supervision (but was recommending SNF but pt refused). OT are recommending HC. Pt has used [facility] in the past and would like to use them. Daughter is requesting for [facility] to be ordered. CM communicated this w/ Dr. Sheehan. CM to follow. Plan: [facility]; PT, OT, RN Date Signed: 01/23/2018 09:53 AM Electronically Signed By:MATY Santiago [facility] Progress Note CM Note CM Note Notes: CM spoke to pts daughter 1 on 1. PT is recommending home w/ 24hr supervision. Pt does not want to have strangers in her house. Daughter reports that her and her work and cannot be there 22/10. CM believes that pt is resistant to the idea of SNF. Daughter would like referrals made to [facility] and [facility]. Referrals sent. Daughter would like to be notified SUJATHA if pt is being discharged. [facility] saw pt and did a cog eval. Pt was confused overnight. Daughter reports that she has [facility] stating that she can make decisions for pt when she cannot. Daughter will tour [employer]. Daughter will not be able to be able to be present during rounds tomorrow. CM to follow. Plan: TBD Date Signed: 01/23/2018 02:56 PM Electronically Signed By:MATY Santiago [facility] Progress Note CM Note CM Note Notes: 01/24/2018 Case Management Note Met w/pt and daughter Rosario ([facility]) [phone] and family friend Ivette to discuss discharge plan. After lengthy discussion pt agreed to [facility] rehab. Contacted Germaine at who is holding bed H7 with tentative plan for pt to d/c tomorrow to . Case Management d/c poc: SNF rehab. Case Management to follow. Date Signed: 01/24/2018 04:03 PM Electronically Signed By:Anyi Branch RN Case Management Discharge Plan Note Case Management Discharge Discharge Order Complete? Answers: Yes Patient to Obtain Answers: Other Notes: SNF Medications Transportation Arranged Answers: Other Notes: [facility] transport Faxed Final Orders Answers: Yes Notes: both allscripts and [employer] Agency/Facility Transfer Answers: Yes Notes: to [facility] Report Printed & Faxed to Receiving Agency Family Notified Answers: Yes Notes: in room Discharge Comments Notes: 01/25/2018 Case Management Note Pt d/c to [facility] rehab. Faxed orders to [facility] via [email or web address] and better.. Arranged transport through [employer] transport [employer] [facility] at request of [facility]. Notified family of jim fee. RN called report. Family in room. Case Management d/c: [facility]. Date Signed: 01/25/2018 03:13 PM Electronically Signed By:Anyi Branch RN Intervention Information Intervention Type:*ELIAS-Signed Date of Service:01/22/2018 03:31 PM Patient Type:Observation Staff Member:Karina Urbano Hours: Discipline: Severity: Comment:
[2018-01-25] MEDS: PANTOPRAZOLE SODIUM 40 MG TAB PO SCH (16:01)
--- NOTE | 2018-01-27 12:51 | CPEKG ---
Test Reason : OPEN Blood Pressure : / mmHG Vent. Rate : 092 BPM Atrial Rate : 091 BPM P-R Int : 250 ms QRS Dur : 096 ms QT Int : 375 ms P-R-T Axes : 119 084 040 degrees QTc Int : 464 ms Sinus rhythm Prolonged CT interval Borderline right axis deviation Probable anteroseptal infarct, old Confirmed by Marshall Brewer ([id number]) on 01/27/2018 12:50:13 PM Referred By: Confirmed By:Marshall Brewer
== END 2018-01-25 16:10 | DRG 872 ==
LOC: CED 13:58 → CEDHOLD 16:19 → F2W 19:30 → OBSVTOIN 01-22 15:42
PROVIDERS: ADMIT Family Medicine; ATTEND Family Medicine
DX: A41.9 Sepsis, unspecified organism (principal); N39.0 Urinary tract infection, site not specified; R78.81 Bacteremia; E87.1 Hypo-osmolality and hyponatremia; R33.9 Retention of urine, unspecified; E86.9 Volume depletion, unspecified; B96.1 Klebsiella pneumoniae [K. pneumoniae] as the cause of diseases classified elsewhere; R05 Cough; E03.9 Hypothyroidism, unspecified; R41.3 Other amnesia; Z86.711 Personal history of pulmonary embolism; Z86.718 Personal history of other venous thrombosis and embolism; Z79.01 Long term (current) use of anticoagulants
CPT/HCPCS: 70450-PO; 71275-PO; 80048-PO; 83605-PO; 84484-PO; 92507-GN; 92523-GN; 96365; 97116-GP; 97161-GP; 97166-GO; 97530-GO; 97530-GP; 97535-GO; G0378; G8978-GP-CK; G8979-GP-CI; G8987-GO-CJ; G8988-GO-CI; G9168-GN-CL; G9169-GN-CK; J0696; J3475; J7512

== ENCOUNTER 2018-08-18 12:07 | Inpatient (IN) | payer OTHER ==
--- NOTE | 2018-08-18 12:07 | EDPHY ---
H & P Time Seen by Provider: 08/18/18 12:07 HPI/ROS: CHIEF COMPLAINT: Right knee and ankle injury HISTORY OF PRESENT ILLNESS: Patient brought in by EMS. History from EMS and the daughter as the patient has Alzheimer's and is less able to give us this complete story. Daughter took the patient's car to the mechanical was gone for about 40 min when she got back found her on the floor and bathroom having fallen , she was on her right side complaining of nausea vomiting and knee and ankle pain on the right side. Symptoms severe. Not better or worse with anything. Not associated with syncope, neck or back pain. Further history and review of systems limited by the patient's dementia. PAST MEDICAL HISTORY: Alzheimer's, venous thromboembolism, hypertension, arthritis, knee replacement Social history: Daughter here with the patient General Appearance: Alert and conversant, cooperative. Eyes: No scleral icterus. Pupils reactive. ENT, Mouth: Normal mucous membranes. Respiratory: Normal respiratory effort, breath sounds equal, lungs are clear to auscultation. Cardiovascular: Distant heart sounds. No murmur. Gastrointestinal: Abdomen is soft and non tender. Neurological: Alert, face symmetric, normal motor and sensory in extremities. Poor short-term memory. Skin: Warm and dry, no rashes. Musculoskeletal: Right knee tenderness to palpation and some swelling, normal right hip and thigh. Compartments soft. Normal lower leg with soft compartments, ankle is tender both medial and lateral malleolus, foot nontender. Psychiatric: Not agitated. Emergency Department course/MDM: Patient does not have external evidence of head trauma; but with fall and age, and landing on her side and poor memory and vomiting, head CT considered to evaluate for subdural or traumatic subarachnoid. X-ray of the right knee and right ankle. EKG CBC chemistry and troponin. 1337: Right knee and ankle x-ray showed negative ankle with hardware intact, right knee negative as well. 1355: Patient complaining of being shaky. Heart rate is in the 40s. Does not feel hot, no spinal tenderness, neck is supple. Urinalysis from 3 days ago reviewed positive for leukocyte esterase only. Going to head CT now. 1419: Head CT negative per my interpretation, admission for bradycardia, unable to walk with knee injury, dizziness. Constitutional: Initial Vital Signs Temperature (C) 36.7 C 08/18/18 12:14 Heart Rate 45 L 08/18/18 12:14 Respiratory Rate 18 08/18/18 12:14 Blood Pressure 104/59 L 08/18/18 12:14 O2 Sat (%) 99 08/18/18 12:14 O2 Delivery Mode Room Air Allergies/Adverse Reactions: ciprofloxacin Allergy (Verified 08/18/18 13:05) Home Medications: Medication Instructions Recorded Apixaban [Eliquis] 2.5 mg PO BID 01/21/18 Calcium Carbonate [Oyster Shell 500 mg PO HS 01/21/18 Calcium 500 mg (*)] Levothyroxine [Synthroid 25 mcg 37.5 mcg PO DAILY06 01/21/18 (*)] Omeprazole 40 mg PO DAILY 01/21/18 Ranitidine HCl [Zantac] 300 mg PO HS 01/21/18 Ascorbic Acid [Vitamin C 250 mg 250 mg PO BID 08/18/18 (*)] Cholecalciferol Vit D3 [Vitamin D3 2,000 units PO DAILY 08/18/18 2000 units tab (OTC)] Citalopram Hydrobromide 20 mg PO HS 08/18/18 [Citalopram HBr] Donepezil HCl [Aricept 5 MG (*)] 5 mg PO HS 08/18/18 Ellura 36 mg PO HS 08/18/18 Memantine HCl [Namenda 10 mg] 10 mg PO BID 08/18/18 Methenamine Mckayla [Hiprex 1 gm (*)] 0.5 gm PO BID 08/18/18 Vits96/Iron Fum/Folic 1 each PO DAILY 08/18/18 [ Tablet] QUEtiapine FUMARATE [Seroquel 25 50 mg PO HS 08/18/18 mg (*)] amLODIPine BESYLATE [Norvasc 2.5 2.5 mg PO DAILY 08/18/18 mg (*)] Medical Decision Making - Diagnostics EKG Interpretation: 12-lead EKG interpreted by me; official reading is in computer system. My interpretation is atrial fibrillation rate 39 with right axis and low voltage. 1446: Further evaluation of rhythm strip lead V1 appears has complete heart block. Imaging Results: Imaging Impressions Ankle X-Ray 08/18/18 12:15 Impression: Postsurgical changes of open reduction internal fixation of a distal fibular fracture and a medial malleolar fracture, as above. Other chronic findings as above. Head CT 08/18/18 12:15 Impression: Nothing acute. Findings and recommendations discussed with Dr. Sharath Subramanian at 2:38 PM, 2018. Final report concurs with initial preliminary interpretation. Knee X-Ray 08/18/18 12:15 Impression: Postsurgical changes of right total knee arthroplasty, with good alignment and appearance. Suprapatellar joint effusion. Imaging: I viewed and interpreted images myself Differential Diagnosis: Differential considered including but not limited to cardiac syncope, stroke, intracranial bleed, metabolic abnormality Consult/Admit Bed Type: [facility] - [facility] Points Laboratory Results: Laboratory Results 08/18/18 13:15 08/18/18 13:15 08/18/18 08/18/18 08/18/18 13:16 13:15 13:15 WBC 6.34 10^3/uL 10^3/uL (3.80-9.50) RBC 4.76 10^6/uL 10^6/uL (4.18-5.33) Hgb 12.7 g/dL g/dL (12.6-16.3) Hct 39.2 % % (38.0-47.0) MCV 82.4 fL fL (81.5-99.8) MCH 26.7 pg L pg (27.9-34.1) MCHC 32.4 g/dL g/dL (32.4-36.7) RDW 19.9 % H % (11.5-15.2) Plt Count 261 10^3/uL 10^3/uL (150-400) MPV 9.0 fL fL (8.7-11.7) Neut % (Auto) 65.3 % % (39.3-74.2) Lymph % (Auto) 25.2 % % (15.0-45.0) [place] % (Auto) 6.6 % % (4.5-13.0) Eos % (Auto) 2.1 % % (0.6-7.6) Baso % (Auto) 0.5 % % (0.3-1.7) Nucleat RBC Rel Count 0.0 % % (0.0-0.2) Absolute Neuts (auto) 4.14 10^3/uL 10^3/uL (1.70-6.50) Absolute Lymphs (auto) 1.60 10^3/uL 10^3/uL (1.00-3.00) Absolute Monos (auto) 0.42 10^3/uL 10^3/uL (0.30-0.80) Absolute Eos (auto) 0.13 10^3/uL 10^3/uL (0.03-0.40) Absolute Basos (auto) 0.03 10^3/uL 10^3/uL (0.02-0.10) Absolute Nucleated RBC 0.00 10^3/uL 10^3/uL (0-0.01) Immature Gran % 0.3 % % (0.0-1.1) Immature Gran # 0.02 10^3/uL 10^3/uL (0.00-0.10) Sodium 138 mEq/L mEq/L (135-145) Potassium 4.4 mEq/L mEq/L (3.5-5.2) Chloride 109 mEq/L mEq/L (97-110) Carbon Dioxide 20 mEq/l L mEq/l (22-31) Anion Gap 9 mEq/L mEq/L (6-14) BUN 13 mg/dL mg/dL (7-23) Creatinine 1.1 mg/dL H mg/dL (0.6-1.0) Estimated GFR 47 Glucose 83 mg/dL mg/dL (70-100) Calcium 9.3 mg/dL mg/dL (8.5-10.4) POC Troponin I 0.03 ng/mL ng/mL (0.00-0.08) Medications Given: Discontinued Medications Fentanyl (Sublimaze) 50 mcg IVP EDNOW ONE Stop: 08/18/18 14:03 Last Admin: 08/18/18 14:07 Dose: 50 mcg Point of Care Test Results: Chemistry 08/18/18 13:16 POC Troponin I 0.03 ng/mL ng/mL (0.00-0.08) Departure - Departure Disposition: [facility] Inpatient Acute Clinical Impression: Bradycardia, Contusion of right knee, initial encounter, Dizziness, Heart block AV complete Condition: Fair
--- NOTE | 2018-08-18 12:50 | CPEKG ---
Test Reason : OPEN Blood Pressure : / mmHG Vent. Rate : 039 BPM Atrial Rate : 071 BPM P-R Int : 084 ms QRS Dur : 103 ms QT Int : 529 ms P-R-T Axes : 000 144 113 degrees QTc Int : 427 ms Atrial fibrillation Right axis deviation Low voltage, extremity leads Minimal ST elevation, inferior leads Confirmed by Sharath Subramanian ([id number]) on 08/18/2018 12:50:13 PM Referred By: Sharath Subramanian Confirmed By:Sharath Subramanian
[2018-08-18 13:27] LABS: PLATELET COUNT 261 10^3/uL (150-400)
[2018-08-18] MEDS ORDERED: fentaNYL 100 MCG/2 ML INJ IVP ONE (14:02)
[2018-08-18] MEDS ORDERED: ACETAMINOPHEN 325 MG TAB PO PRN (14:51)
[2018-08-18] MEDS ORDERED: oxyCODONE IR 5 MG TAB PO PRN (15:15)
--- NOTE | 2018-08-18 15:23 | PDGENHP ---
<Ayse Griggsnathan - Last Filed: 08/18/18 15:45> History and Physical - History of Present Illness History Information - Allergies/Home Medication List Allergies/Adverse Reactions: ciprofloxacin Allergy (Verified 08/18/18 13:05) Home Medications: Apixaban [Eliquis] 2.5 mg PO BID 01/21/18 [Last Taken 08/18/18 09:00] Calcium Carbonate [Oyster Shell Calcium 500 mg (*)] 500 mg PO HS 01/21/18 [Last Taken 08/17/18] Levothyroxine [Synthroid 25 mcg (*)] 37.5 mcg PO DAILY06 01/21/18 [Last Taken ] Omeprazole 40 mg PO DAILY 01/21/18 [Last Taken 08/18/18] Ranitidine HCl [Zantac] 300 mg PO HS 01/21/18 [Last Taken 08/17/18] Ascorbic Acid [Vitamin C 250 mg (*)] 250 mg PO BID 08/18/18 [Last Taken 09:00] Cholecalciferol Vit D3 [Vitamin D3 2000 units tab (OTC)] 2,000 units PO DAILY [Last Taken 08/18/18] Citalopram Hydrobromide [Citalopram HBr] 20 mg PO HS 08/18/18 [Last Taken ] Donepezil HCl [Aricept 5 MG (*)] 5 mg PO HS 08/18/18 [Last Taken 08/17/18] Ellura 36 mg PO HS 08/18/18 [Last Taken 08/17/18] Memantine HCl [Namenda 10 mg] 10 mg PO BID 08/18/18 [Last Taken 08/18/18 09:00] Methenamine Mckayla [Hiprex 1 gm (*)] 0.5 gm PO BID 08/18/18 [Last Taken 08/18/18 09:00] Vits96/Iron Fum/Folic [ Tablet] 1 each PO DAILY 08/18/18 [Last Taken Unknown] QUEtiapine FUMARATE [Seroquel 25 mg (*)] 50 mg PO HS 08/18/18 [Last Taken ] amLODIPine BESYLATE [Norvasc 2.5 mg (*)] 2.5 mg PO DAILY 08/18/18 [Last Taken ] Review of Systems Review of Systems: Physical Exam Physical Exam: Temp Pulse Resp BP Pulse Ox 36.7 C 63 18 135/59 H 93 08/18/18 12:14 08/18/18 15:30 08/18/18 15:30 08/18/18 15:30 08/18/18 15:30 Lab Data & Imaging Review 08/18/18 13:15 08/18/18 13:15 WBC 6.34 10^3/uL (3.80-9.50) 08/18/18 13:15 RBC 4.76 10^6/uL (4.18-5.33) 08/18/18 13:15 Hgb 12.7 g/dL (12.6-16.3) 08/18/18 13:15 Hct 39.2 % (38.0-47.0) 08/18/18 13:15 MCV 82.4 fL (81.5-99.8) 08/18/18 13:15 MCH 26.7 pg (27.9-34.1) L 08/18/18 13:15 MCHC 32.4 g/dL (32.4-36.7) 08/18/18 13:15 RDW 19.9 % (11.5-15.2) H 08/18/18 13:15 Plt Count 261 10^3/uL (150-400) 08/18/18 13:15 MPV 9.0 fL (8.7-11.7) 08/18/18 13:15 Neut % (Auto) 65.3 % (39.3-74.2) 08/18/18 13:15 Lymph % (Auto) 25.2 % (15.0-45.0) 08/18/18 13:15 Woodford % (Auto) 6.6 % (4.5-13.0) 08/18/18 13:15 Eos % (Auto) 2.1 % (0.6-7.6) 08/18/18 13:15 Baso % (Auto) 0.5 % (0.3-1.7) 08/18/18 13:15 Nucleat RBC Rel Count 0.0 % (0.0-0.2) 08/18/18 13:15 Absolute Neuts (auto) 4.14 10^3/uL (1.70-6.50) 08/18/18 13:15 Absolute Lymphs (auto) 1.60 10^3/uL (1.00-3.00) 08/18/18 13:15 Absolute Monos (auto) 0.42 10^3/uL (0.30-0.80) 08/18/18 13:15 Absolute Eos (auto) 0.13 10^3/uL (0.03-0.40) 08/18/18 13:15 Absolute Basos (auto) 0.03 10^3/uL (0.02-0.10) 08/18/18 13:15 Absolute Nucleated RBC 0.00 10^3/uL (0-0.01) 08/18/18 13:15 Immature Gran % 0.3 % (0.0-1.1) 08/18/18 13:15 Immature Gran # 0.02 10^3/uL (0.00-0.10) 08/18/18 13:15 Sodium 138 mEq/L (135-145) 08/18/18 13:15 Potassium 4.4 mEq/L (3.5-5.2) 08/18/18 13:15 Chloride 109 mEq/L (97-110) 08/18/18 13:15 Carbon Dioxide 20 mEq/l (22-31) L 08/18/18 13:15 Anion Gap 9 mEq/L (6-14) 08/18/18 13:15 BUN 13 mg/dL (7-23) 08/18/18 13:15 Creatinine 1.1 mg/dL (0.6-1.0) H 08/18/18 13:15 Estimated GFR 47 08/18/18 13:15 Glucose 83 mg/dL (70-100) 08/18/18 13:15 Calcium 9.3 mg/dL (8.5-10.4) 08/18/18 13:15 POC Troponin I 0.03 ng/mL (0.00-0.08) 08/18/18 13:16 Assessment & Plan Assessment: Patient seen and examined and discussed with Alyce Solomon NP. I agree with her H& P. Patient found on the floor after a short period o being alone. She complained of recent dizziness. ECG with complete heart block Plan: Echo, tele monitoring, pacemaker tomorrow am by Dr. Chappell. <Radha Solomon - Last Filed: 08/18/18 15:47> History and Physical - Chief Complaint Bradycardia, 3rd degree heart block, atrial fibrillation - History of Present Illness 82 y/o female w/ hx of dementia, hx of PE, hypothyroidism presents to the ED s/ p losing her balance while in the bathroom and injuring her right knee and ankle. Her daughter took the pt's car to the machine tool mechanic and returned 40 minutes later to find the pt on the bathroom floor, vomiting and complaining of pain to her RLE. Head CT/right knee and ankle x-ray unremarkable, no fracture of displacement. EKG revealing third degree block/atrial fibrillation/ bradycardia. Pt reports always having an irregular rhythm. Denies SOB, CP, palpitations, nausea. Endorses feeling lightheaded and dizzy at the time of the incident. She is being admitted for further work-up, treatment and monitoring. History Information I have personally reviewed and updated: family history, medical history, social history, surgical history - Past Medical History dementia, recurrent UTI Additional medical history: Hx of PE/DVT, hypothyroidism, arthritis, hiatal hernia - Surgical History Additional surgical history: Tonsillectomy, tubal ligation, bilateral knee surgeries, hysterectomy - Family History Positive for: non-pertinent - Social History Smoking Status: Never smoked Alcohol Use: None Drug Use: None Additional social history: Lives independently in [place]. Daughter at bedside Review of Systems Review of Systems: ROS: 10pt was reviewed & negative except for what was stated in HPI & below Physical Exam Physical Exam: Lab data and imaging were reviewed. Case discussed w/admitting physician, Dr. Rudy Griggs. WBC; 6.34 H/H: 12.7/39.2 Plt count: 261 Na: 138 K: 4.4 Cl: 109 Co2: 20 BUN/Cr: 13/1.[address] WO contrast: Nothing acute. Knee and ankle x-ray: suprapatellar joint effusion, no fractures or prosthetic out of alignment EKG: see HPI Temp Pulse Resp BP Pulse Ox 36.7 C 44 L 16 118/64 97 08/18/18 12:14 08/18/18 14:25 08/18/18 14:25 08/18/18 14:25 08/18/18 14:25 Constitutional: obese, uncomfortable Eyes: PERRL, anicteric sclera, EOMI Ears, Nose, Mouth, Throat: moist mucous membranes, hearing normal, ears appear normal, no oral mucosal ulcers Cardiovascular: no murmur, rub, or gallop, irregularly irregular Peripheral Pulses: 2+: dorsalis-pedis (R), dorsalis-pedis (L) Respiratory: no respiratory distress, no rales or rhonchi, clear to auscultation Gastrointestinal: normoactive bowel sounds, soft, non-tender abdomen, no palpable masses Genitourinary: no bladder fullness, no bladder tenderness Skin: warm, normal color, no rashes or abrasions, no fluctuance, no induration, No mottled Musculoskeletal: joint effusion (Right suprapatellar), pain with ROM (RLE) Neurologic: sensation intact bilaterally, CN II-XII Intact Psychiatric: interacting appropriately, not anxious, not encephalopathic, thought process linear, poor memory Lymph, Heme, Immunologic: no cervical LAD, no supraclavicular LAD Lab Data & Imaging Review 08/18/18 13:15 08/18/18 13:15 WBC 6.34 10^3/uL (3.80-9.50) 08/18/18 13:15 RBC 4.76 10^6/uL (4.18-5.33) 08/18/18 13:15 Hgb 12.7 g/dL (12.6-16.3) 08/18/18 13:15 Hct 39.2 % (38.0-47.0) 08/18/18 13:15 MCV 82.4 fL (81.5-99.8) 08/18/18 13:15 MCH 26.7 pg (27.9-34.1) L 08/18/18 13:15 MCHC 32.4 g/dL (32.4-36.7) 08/18/18 13:15 RDW 19.9 % (11.5-15.2) H 08/18/18 13:15 Plt Count 261 10^3/uL (150-400) 08/18/18 13:15 MPV 9.0 fL (8.7-11.7) 08/18/18 13:15 Neut % (Auto) 65.3 % (39.3-74.2) 08/18/18 13:15 Lymph % (Auto) 25.2 % (15.0-45.0) 08/18/18 13:15 Woodford % (Auto) 6.6 % (4.5-13.0) 08/18/18 13:15 Eos % (Auto) 2.1 % (0.6-7.6) 08/18/18 13:15 Baso % (Auto) 0.5 % (0.3-1.7) 08/18/18 13:15 Nucleat RBC Rel Count 0.0 % (0.0-0.2) 08/18/18 13:15 Absolute Neuts (auto) 4.14 10^3/uL (1.70-6.50) 08/18/18 13:15 Absolute Lymphs (auto) 1.60 10^3/uL (1.00-3.00) 08/18/18 13:15 Absolute Monos (auto) 0.42 10^3/uL (0.30-0.80) 08/18/18 13:15 Absolute Eos (auto) 0.13 10^3/uL (0.03-0.40) 08/18/18 13:15 Absolute Basos (auto) 0.03 10^3/uL (0.02-0.10) 08/18/18 13:15 Absolute Nucleated RBC 0.00 10^3/uL (0-0.01) 08/18/18 13:15 Immature Gran % 0.3 % (0.0-1.1) 08/18/18 13:15 Immature Gran # 0.02 10^3/uL (0.00-0.10) 08/18/18 13:15 Sodium 138 mEq/L (135-145) 08/18/18 13:15 Potassium 4.4 mEq/L (3.5-5.2) 08/18/18 13:15 Chloride 109 mEq/L (97-110) 08/18/18 13:15 Carbon Dioxide 20 mEq/l (22-31) L 08/18/18 13:15 Anion Gap 9 mEq/L (6-14) 08/18/18 13:15 BUN 13 mg/dL (7-23) 08/18/18 13:15 Creatinine 1.1 mg/dL (0.6-1.0) H 08/18/18 13:15 Estimated GFR 47 08/18/18 13:15 Glucose 83 mg/dL (70-100) 08/18/18 13:15 Calcium 9.3 mg/dL (8.5-10.4) 08/18/18 13:15 POC Troponin I 0.03 ng/mL (0.00-0.08) 08/18/18 13:16 Assessment & Plan Assessment: 82 y/o female presenting s/p possible syncopal event w/injury to RLE, subsequently bradycardic, 3rd degree heart block and atrial fibrillation. Vital signs are the following: BP 135/75, HR 67, Resp 18, temp 36.7, Oxygen 98% RA. #Heart block AV complete (Acute) -Symptomatic w/bradycardia, dizziness, atrial fibrillation -Cards consulted and Silvia Rhodes INTERIOR DESIGN INSTRUCTOR at bedside evaluating pt; she will contact Dr. Castellanos for next steps and await ECHO results -Echo pending -Cycle trops Q6H x 2 -Cont tele/PCU monitoring -TSH within normal range: 3.100 -INR pending; possible pacemaker? Holding Eliquis for now #Contusion of right knee, initial encounter (Acute) -Imaging are unremarkable for any fractures or displacement of hardward -PT/OT to evaluate and treat -Ice packs -Pain management PO PRN; received 50 mcg Fentanyl in ED #Hx of PE/DVT -Last PE was 3-4 years ago -Cont Eliquis once cleared by cards, possible pacemaker? -INR pending #Dementia -Diagnosed March 2018 and is described as "moderate" per daughter -Cont aricept and namenda Diet: NPO Code: Full VTE ppx: SCDs, Eliquis Dispo: Admit to inpatient
[2018-08-18] MEDS ORDERED: BACITRACIN IRRIGATION/NS 50,000 UNITS/1,000 ML BTL IRR ONE (15:48)
[2018-08-18] MEDS ORDERED: NS 1,000 ML IV ONE (15:48)
[2018-08-18 16:01] LABS: INR 1.01 (0.83-1.16); PROTIME(PATIENT) 12.9 SEC (12.0-15.0)
--- NOTE | 2018-08-18 16:11 | ECHO ---
[email or web address] [address] Main: [phone] Echocardiography Examination Transthoracic Name: FANNY SOTELO MR#: [id number] Study Date: 08/18/2018 Study Time: 02:59 PM Date of : 1935 Age: 82 year(s) Height: 172.7 cm (68 in.) Weight: 83.92 kg (185 lb.) BSA: 1.98 m2 Gender: Female Examination: Echo Contrast: Image Quality: Rhythm: Heart Rate: 66 bpm BP: 111 mmHg/71 mmHg Indication: 3rd Degree Heart Block, Cardiac: dizziness and/or near-syncope Procedure Staff Referring Physician: Consolidation Accountant: Eliazar Llanos RDCS Reading Physician: Dao Brewer MD Requesting Provider: Ordering Physician: Radha Solomon Indication: 3rd Degree Heart Block, Cardiac: dizziness and/or near-syncope Measurements Chambers AV/MV Label Value Normal Value Label Value Normal Value LVOT Vmax 0.6 m/s (0.7m/s - 1.1m/s) AV PGmax 7 mmHg LVOTd 2 cm (1.8cm - 2cm) AV PGmean 4 mmHg LVOT VTI 14.8 cm (18cm - 22cm) AV Vmax 1.29 m/s LVDd, 2D 5.3 cm (3.9cm - 5.3cm) CELESTE (Vmax) 1.5 cm2 LVDs, 2D 3.8 cm (2.1cm - 4cm) CELESTE (VTI) 1.5 cm2 IVSd, 2D 0.9 cm (0.6cm - 1.1cm) MV E Vmax 1.62 m/s LVPWd, 2D 1 cm MV A Vmax 1.75 m/s LVEF, 2D 54 % (54% - 74%) MV E/A 0.93 LVOT PGmean 1 mmHg MV E/E' septal 34.6 (0.45 - 1.25) LVOT Vmean 0.45 m/s MV E' septal 0.05 m/s RVDd, 2D 3.4 cm (1.9cm - 3.8cm) MV VTI 46.1 cm LA Volume, BP 120 ml (22ml - 52ml) MVA D (continuity eq.) 1 cm2 LADs, 2D 4.9 cm (2.7cm - 3.8cm) MV PGmax 13 mmHg LAESV index, BP 60.6 ml/m2 MV PGmean 7 mmHg RA Area 18.3 cm2 Additional Vessels Label Value Normal Value AoRoot, MM 3.1 cm (2.2cm - 3.7cm) Patient: FANNY SOTELO Study Date: 08/18/2018 Page 1 of 3 02:59 PM Conclusions Left Ventricle: Left ventricle is normal in size. EF range is estimated at 50 % - 60 %. Diastolic Dysfunction is indeterminate. Right Ventricle: Right ventricular systolic function is normal. Left Atrium: The left atrium is severely dilated. Mitral Valve: Mild to moderate mitral valve stenosis. There is restricted mobility of both the anterior and posterior leaflets. Mitral Valve Measurements MV PGmean is 7 mmHg. Tricuspid Valve: No significant tricuspid regurgitation. Findings Left Ventricle: Left ventricle is normal in size. Low normal left ventricular systolic function. The EF is visually estimated to be 55 %. EF range is estimated at 50 % - 60 %. Left ventricle wall thickness is normal. Diastolic Dysfunction is indeterminate. Right Ventricle: Normal size right ventricle. Right ventricular systolic function is normal. Left Atrium: The left atrium is severely dilated. Right Atrium: The right atrium is moderately dilated. Mitral Valve: No significant mitral regurgitation. Mild to moderate mitral valve stenosis. There is moderately reduced mitral leaflet separation. There is restricted mobility of both the anterior and posterior leaflets. Mitral Valve Measurements MV PGmean is 7 mmHg. Aortic Valve: No significant aortic valve regurgitation. There is no aortic stenosis. Aortic leaflets exhibit mild calcification. The aortic valve is trileaflet. Tricuspid Valve: Tricuspid valve leaflets are normal in appearance and function. No significant tricuspid regurgitation. Pulmonic Valve: Pulmonic leaflets are normal in appearance and function. No pulmonic valve regurgitation is evident. Aorta: The aorta is normal. The aortic root size in M-mode measures 3.1 cm. Aorta Measurements AoRoot, MM is 3.1 cm. Pericardium: No pericardial effusion. Exam Details Patient: FANNY SOTELO Study Date: 08/18/2018 Page 2 of 3 02:59 PM Procedure Ordered: Echo (No Signature Object) Patient: FANNY SOTELO Study Date: 08/18/2018 Page 3 of 3 02:59 PM [id number]
[2018-08-18] MEDS: ACETAMINOPHEN 500 MG TAB PO SCH (16:34)
--- NOTE | 2018-08-18 17:24 | GHP ---
[f rep st] HISTORY AND PHYSICAL DATE OF ADMISSION: 08/18/2018 REASON FOR CONSULT: Third-degree heart block. HISTORY OF PRESENT ILLNESS: We were asked by the hospitalist to consult related to EKG showing a third-degree heart block. The patient is an 82-year- old female who has a history of Alzheimer's, PE, and hypothyroidism. She fell at home in the bathroom after blacking out. She hit her right knee and reports that she vomited several times. Her daughter had been at the house to take her mother's car to the lamp mechanic and returned about 40-50 minutes later, and found her lying on the bathroom floor. She does have PE and Atrial Fibrillation history and is on Eliquis. She was taken for a head CT, which was unremarkable. She additionally had knee and ankle x-rays that showed no fracture. Of concern is her EKG showing a third-degree heart block with heart rates 30s to 40s. She does have irregularity to her heart rhythm. It appears that she is in atrial fibrillation with a well-controlled ventricular rate of 30 -40. Her daughter is with her at time of this visit and provides information related to her health due to the Alzheimer's not allowing her to recall information. ALLERGIES: She does have allergies to ciprofloxacin. HOME MEDICATIONS: Include Eliquis 2.5 mg twice daily, calcium 500 mg at bedtime , Synthroid 37.5 mcg daily, omeprazole 40 mg daily, Zantac 300 mg at bedtime, vitamin C 250 mg twice daily, vitamin D3 2000 units daily, citalopram 20 mg at bedtime, Aricept 5 mg at bedtime, Melisa 36 mg at bedtime, Namenda 10 mg twice daily, Hiprex 0.5 g twice daily, tablet 1 daily, Seroquel 25 mg 2 tablets at bedtime, Norvasc 2.5 mg daily. PAST MEDICAL HISTORY: 1. PE/DVTs. 2. Hypothyroidism. 3. Arthritis. 4. Hiatal hernia. 5. Atrial Fibrillation. SURGICAL HISTORY: 1. Tonsillectomy. 2. Tubal ligation. 3. Bilateral knee surgeries. 4. Hysterectomy. FAMILY HISTORY: None pertinent. SOCIAL HISTORY: She has never smoked. She has never used alcohol or illicit drugs. She lives independently in her home in [place]. Her daughter looks in on her several times daily. REVIEW OF SYSTEMS: A 10-point review of system was negative except that stated in the HPI. PHYSICAL EXAM: VITAL SIGNS: Blood pressure 135/59, heart rate 44 to 63, respirations 16, and temperature 36.6 Celsius. EYES: PERRLA. ENT: Membranes are moist. Hears well. Oral mucosa moist. RESPIRATORY: No respiratory distress. LUNGS: Clear to auscultation. No wheezes, rales, or rhonchi. CARDIOVASCULAR: No murmur, rubs, or gallops. She has an irregular rhythm. GI : Normoactive bowel sounds. No abdominal tenderness. GENITOURINARY: No bladder fullness or tenderness. EXTREMITIES: Peripheral pulses are 2+. SKIN: Warm and dry with no rashes. MUSCULOSKELETAL: Discomfort with range of motion. NEUROLOGICAL: Sensations are intact. PSYCHIATRIC: She is not anxious. She answers questions appropriately. Poor memory. LABORATORY: White blood count 6.34, red blood count 4.76, hemoglobin 12.7, hematocrit 39.2, and platelet count 261. Coagulation: INR 1.01. Chemistry: Sodium 138, potassium 4.4, carbon dioxide 20, BUN 13, creatinine 1.1, GFR 47, glucose 83, and calcium 9.3. Troponin 0.03. INVESTIGATIONS: Echocardiogram done on 08/18/2016, requested due to third-degree heart block and dizziness. Conclusion: 1. Diastolic dysfunction is indeterminate. 2. Right ventricular systolic function is normal. 3. Left atrium is severely dilated. 4. Mitral valve. Mild to moderate mitral valve stenosis. Restricted mobility of both the anterior and posterior leaflets. 5. Tricuspid. No significant tricuspid regurgitation. 6. Aortic valve. No aortic valve regurgitation significant. No significant aortic stenosis. Mild calcification of aortic leaflets. The aortic valve is trileaflet. 7. Tricuspid valve. Normal in appearance and function. No significant tricuspid regurgitation. 8. Pulmonic valve. Pulmonic leaflets are normal in appearance and function. No valve regurgitation is evident. 9. Aorta. The aorta is normal. Aortic root size M mode measures 3.1 cm. Aortic measurements. Aortic root estimated at 3.1 cm. 10. Pericardium. No pericardial effusion. 11. EF estimated at 50% to 60%. Electrocardiogram, 08/27/2018: Complete heart block with right axis deviation, minimal ST-elevation in inferior leads, atrial fibrillation. Head CT, 08/27/2018: Moderate amount age-related atrophy, unchanged from prior study. A moderate amount of ischemic hypodensities. No intracranial hemorrhage or mass. No shift. No skull fracture. Paraspinal sinuses are clear. Scalp is normal. Impression: Nothing acute. IMPRESSION AND PLAN: 1. EKG shows atrial fibrillation with third-degree heart block. Dr. Emanuel Chappell did re-examine the patient and reviewed EKGs. It is recommended that she proceed with pacemaker placement. This was discussed with the patient and her daughter. They choose to proceed with placement of the pacemaker. This will be done tomorrow, August 19, 2018. 2. EKG showed third-degree heart block with a rate of 39. She does well with this low of a heart rate typically. Likely, this contributed to her fall. She is on Eliquis for anticoagulation. At this time, she is stable. She is on the telemetry floor for continuous monitoring. Should she become unstable, a pacemaker will be placed sooner. She is resting comfortably. We will continue to follow along. Thank you very much for asking us to be part of this patient's care. /[id number]/MODL and [id number]/MODL [facility]
--- NOTE | 2018-08-18 20:55 | PDMN ---
Medical Necessity Medical necessity: [facility] Cardiology: 82 yo w/ syncopal event w/ injury to RLE. Eval reveals acute complete (3rd degree) AV heart block with symptomatic bradycardia, dizziness and afib, requiring pacer. Cardio consult. Meets [facility] status for Cardiac arrhythmias or findings of immediate concern as indicated by Unstable cardiac conduction defects as indicated by 1 or more of the following: Third degree AV block
[2018-08-18] MEDS: METHENAMINE HIPP 1 GM TAB PO SCH (21:11)
[2018-08-18] MEDS: MEMANTINE HCL 5 MG TAB PO SCH (21:11)
[2018-08-18] MEDS: QUEtiapine FUMARATE 25 MG TAB PO SCH (21:11)
[2018-08-18] MEDS: ASCORBIC ACID 250 MG TAB PO SCH (21:11)
[2018-08-18] MEDS: CALCIUM CARBONATE 500 MG TAB PO SCH (21:12)
[2018-08-18] MEDS: FAMOTIDINE 20 MG TAB PO SCH (21:12)
[2018-08-18] MEDS: CITALOPRAM 20 MG TAB PO SCH (21:12)
[2018-08-18] MEDS: DONEPEZIL HCL 5 MG TAB PO SCH (21:12)
[2018-08-18] MEDS: traMADol 50 MG TAB PO PRN (21:17)
[2018-08-18] MEDS: ELLURA PO SCH (22:40)
[2018-08-19] MEDS: ACETAMINOPHEN 500 MG TAB PO SCH ×3 (01:45→15:58)
[2018-08-19] MEDS: LEVOTHYROXINE 25 MCG TAB PO SCH (05:31)
[2018-08-19] MEDS: traMADol 50 MG TAB PO PRN (05:52)
[2018-08-19] MEDS: MEMANTINE HCL 5 MG TAB PO SCH ×2 (08:37→20:27)
[2018-08-19] MEDS: FOLIC PO SCH (08:37)
[2018-08-19] MEDS: CHOLECALCIFEROL VIT D3 2,000 UNITS TAB/CAP PO SCH (08:37)
[2018-08-19] MEDS: ASCORBIC ACID 250 MG TAB PO SCH ×2 (08:37→20:27)
[2018-08-19] MEDS: FAMOTIDINE 20 MG TAB PO SCH ×2 (08:37→20:26)
[2018-08-19] MEDS: METHENAMINE HIPP 1 GM TAB PO SCH ×2 (08:37→20:26)
[2018-08-19] MEDS: PRENATAL VITS96 PO SCH (08:37)
[2018-08-19] MEDS: PANTOPRAZOLE SODIUM 40 MG TAB PO SCH (08:37)
[2018-08-19] MEDS: IRON FUM PO SCH (08:37)
--- NOTE | 2018-08-19 10:58 | HOSPPROG ---
Hospitalist Progress Note Assessment/Plan: ASSESSMENT/DIAGNOSES: * Injury fall due to bradycardia * 3rd degree AV nichole block * R knee sprain * Gait Instability * Mitral Stenosis, mild-mod * Anticoagulation for recurrent PE hx (eliquis) * Renal Insuff, chronic stable * hypothyroidism: on low dose T4, TSH was 3 this month PLANS: * continue monitor off eliquis * permanent pacer placement tomorrow * resume eliquis when safe * fall risk precautions, PT OT * intermittent echo's for her Mitral Stenosis outpatient I reviewed in detail with Silvia Rhodes today SUBJECTIVE: still some pain in her R knee ankle and low back pain resolved OBJECTIVE: vitals all stable, w HR in 60s card monitor, my review:HR 60s with sinus rythym, occaisional PVC Exam: alert oriented skin warm, pale no jvd lungs clear heart regular, very quiet heart tones no murmur heard minimal ankle edema, signficant vericosity legs Lab data: troponins normal I reviewed outpt labs, she has a TSH 3 earlier this month Objective: Vital Signs Temp Pulse Resp BP Pulse Ox 37.2 C 65 18 105/60 97 08/19/18 08:00 08/19/18 08:00 08/19/18 08:00 08/19/18 08:00 08/19/18 08:00 08/18/18 08/19/18 08/20/18 06:59 06:59 06:59 Intake Total 1115 Output Total 750 Balance 365 PT 12.9 SEC (12.0-15.0) 08/18/18 13:18 INR 1.01 (0.83-1.16) 08/18/18 13:18 - Time Spent With Patient Time Spent with Patient: greater than 35 minutes Time Spent with Patient: Greater than 35 minutes spent on this patients care, greater than 50% of time spent counseling, educating, and coordinating care regarding the above mentioned plan. ICD10 Worksheet Patient Problems: Problems Problem Status Onset Bradycardia Acute Contusion of right knee, initial encounter Acute Dizziness Acute Heart block AV complete Acute GERD (gastroesophageal reflux disease) Acute Hiatal hernia Acute Hypokalemia Acute Hyponatremia Acute Hypotension Acute Hypoxia Acute Pulmonary embolus Acute Urinary retention Acute Urinary tract infection Acute
--- NOTE | 2018-08-19 14:51 | PDCARPN ---
Cardiology Progress Note Chief Complaint: Bradycardia Rates 40's Paroxysmal Atrial Fibrillation. Assessment/Plan: Assessment: Bradycardia with rates 30 to 40's on admission yesterday. Pacemaker to be placed tomorrow. She blacked out and fell in her bathroom and her daughter found her 50 minutes later. She hurt her right knee, wiith no broken bones. Atrial Fibrillation and PE history, on Eliquis for anticoagulation. CHADs VASC score at least "3". Yesterday EKG appeared to be Atrial Fib, today Sinus rhythm. Eliquis is on HOLD for upcoming Pacemaker placement tomorrow. She is feeling well today. Plan: Pacemaker placement tomorrow 08/19/18 14:43 Subjective: I feel well today Reviewed/Discussed With: multidisciplinary team, other (Emanuel Chappell MD) Time Spent with Patient: greater than 25 minutes Time Spent with Patient: Greater than 25 minutes spent on this patients care, greater than 50% of time spent counseling, educating, and coordinating care regarding the above mentioned plan. Objective: Vital Signs (8 Hrs) Temp Pulse Resp BP Pulse Ox 08/19/18 12:00 36.6 C 66 18 86/51 L 94 08/19/18 08:00 37.2 C 65 18 105/60 97 Intake/Output (24 Hrs) 08/18/18 08/19/18 08/20/18 05:59 05:59 05:59 Intake Total 1115 Output Total 750 Balance 365 Intake: Oral (ml) 1100 IV Infused (ml) 15 Output: Urine (ml) 750 Toilet 750 Other: Weight 83.915 kg Result Diagrams: 08/18/18 13:15 08/18/18 13:15 Cardiac Labs: Cardiac Lab Results (72 Hrs) 08/19/18 08/18/18 01:30 19:40 Troponin I < 0.012 < 0.012 - Physical Exam Constitutional: no apparent distress Cardiovascular: regular rate and rhythm, no murmurs, no rubs, no gallops Respiratory: clear to auscultate bilat, no crackles, no wheezes Skin: warm, no edema Neurologic: AAOx3 Psychiatric: cooperative, interactive ICD10 Worksheet Patient Problems: Problems Problem Status Onset History of infection due to ESBL Klebsiella oxytoca Acute GERD (gastroesophageal reflux disease) Acute Pulmonary embolus Acute Hiatal hernia Acute Dizziness Acute Hypokalemia Acute Hyponatremia Acute Hypoxia Acute Urinary retention Acute Hypotension Acute Urinary tract infection Acute Bradycardia Acute Contusion of right knee, initial encounter Acute Heart block AV complete Acute
--- NOTE | 2018-08-19 15:12 | ASMTCMCOM ---
CM Note CM Note Notes: 08/19/2018 Case Management Note Pt admitted for bradycardia, afib and a knee injury sustained after a fall; pacemaker planned for tomorrow. Met w/pt and daughter Rosario ([facility]) [phone]. Pt lives independently in her own home. Pt has hired out lawn care. Pt no longer drives. Daughter Rosario visits every other day and takes pt to grocery store or other errands. Pt pcp is Dr. Erick Mayes. Therapies recommending SNF rehab. Discussed w/pt and daughter. Pt hesitant but agreeable to referral. Faxed referral to [facility] rehab. Case Management d/c poc: [facility] rehab pending acceptance. Case Management to follow. Date Signed: 08/19/2018 03:11 PM Electronically Signed By:Anyi Branch RN
[2018-08-19] MEDS: CALCIUM CARBONATE 500 MG TAB PO SCH (20:27)
[2018-08-19] MEDS: CITALOPRAM 20 MG TAB PO SCH (20:27)
[2018-08-19] MEDS: QUEtiapine FUMARATE 25 MG TAB PO SCH (20:27)
[2018-08-19] MEDS: DONEPEZIL HCL 5 MG TAB PO SCH (20:29)
[2018-08-19] MEDS: ELLURA PO SCH (20:30)
[2018-08-20] MEDS: LEVOTHYROXINE 25 MCG TAB PO SCH (04:37)
[2018-08-20] MEDS: ACETAMINOPHEN 500 MG TAB PO SCH ×4 (04:39→22:13)
[2018-08-20 04:50] LABS: PLATELET COUNT 216 10^3/uL (150-400)
[2018-08-20 05:00] LABS: INR 1.05 (0.83-1.16); PROTIME(PATIENT) 13.3 SEC (12.0-15.0)
[2018-08-20] MEDS ORDERED: BACITRACIN IRRIGATION/NS 50,000 UNITS/1,000 ML BTL IRR ONE ×2 (06:00→09:37)
[2018-08-20] MEDS ORDERED: NS 1,000 ML IV ONE ×2 (06:00→09:37)
[2018-08-20] MEDS: METHENAMINE HIPP 1 GM TAB PO SCH ×2 (08:53→20:23)
[2018-08-20] MEDS: FAMOTIDINE 20 MG TAB PO SCH ×2 (08:54→20:24)
[2018-08-20] MEDS: ASCORBIC ACID 250 MG TAB PO SCH ×2 (08:54→20:23)
[2018-08-20] MEDS: CHOLECALCIFEROL VIT D3 2,000 UNITS TAB/CAP PO SCH (08:54)
[2018-08-20] MEDS: MEMANTINE HCL 5 MG TAB PO SCH ×2 (09:08→20:22)
[2018-08-20] MEDS: PANTOPRAZOLE SODIUM 40 MG TAB PO SCH (09:08)
[2018-08-20] MEDS: PRENATAL VITS96 PO SCH (09:12)
[2018-08-20] MEDS: FOLIC PO SCH (09:12)
[2018-08-20] MEDS: IRON FUM PO SCH (09:12)
[2018-08-20] MEDS ORDERED: ceFAZolin 2 GM/DEXTROSE 100 ML IV ONE (09:57)
[2018-08-20] MEDS ORDERED: fentaNYL 100 MCG/2 ML INJ ONE (11:13)
[2018-08-20] MEDS ORDERED: LIDOCAINE 1% 300 MG/30 ML SDV ONE (11:13)
[2018-08-20] MEDS ORDERED: IOPAMIDOL (ISOVUE-300) 50 ML VIAL ONE (11:13)
[2018-08-20] MEDS ORDERED: MIDAZOLAM 2 MG/2 ML VIAL ONE (11:14)
[2018-08-20] MEDS ORDERED: LIDO/EPI 1% **for epidural** 30 ML SDV ONE (11:14)
[2018-08-20] MEDS ORDERED: BUPIVACAINE 0.5% 30 ML SDV ONE (11:14)
--- NOTE | 2018-08-20 11:40 | PDPROPOC ---
Sedation Plan of Care Sedation Plan of Care: vital signs stable, mental status noted, patient educated of risks, benefits, alternatives, patient can tolerate sedation ASA Classification: ASA 2 Planned drugs: fentanyl, midazolam Mallampati Score: Class 1 Mallampati Reference Image: Patient passed 3-3-2 rule?: Yes
--- NOTE | 2018-08-20 12:44 | PDCTREPORT ---
Cardiothoracic Procedure Rpt Cardiothoracic Procedure Report: Procedure: Implantation of dual-chamber pacemaker. Subclavian venogram Indications: Complete heart block with syncope Patient brought to the cardiac catheterization lab in the fasting state. The left subclavian fossa was sterilely prepped and draped. Subclavian venogram was performed. 2% xylocaine was used to anesthetize subclavian fossa. Using a 10 blade an incision was made through the skin. Using combination of sharp and blunt dissection the Bovie catheter pacemaker pocket was created and a bacitracin soaked sponge was placed in the pocket. Using 18 gauge percutaneous needle subclavian vein was entered on the left. Using retained guidewire technique 2 guidewires were advanced into the right heart. Using 6 Ukrainian safety sheaths leads were advanced to the RV apex and right atrial appendage. Appropriate sensitivities and thresholds were confirmed. Sheaths were torn away. The leads were secured to the fascia using 0 Ethibond x2. Hemostasis was achieved. Bacitracin soaked sponge was removed from the pocket. It was copiously irrigated. Generator was delivered to the field and attached to the leads after confirming serial numbers. Setscrews were tightened per industry standards. The entire system was coiled into the pocket. Standard three-layer closure was used to close the pocket and skin. Pressure dressings applied the patient is taken to recovery for continued care. Atrial sensing was 2.1 mV. Impedance was 1126 Ohms. Capture was at 1.7 volts with a pulse with a 1.1 milliseconds. Right ventricular sensing was 8.5 mV. 714 Ohms impedance. Capture was at 0.5 volts with a pulse with a 0.5 milliseconds. Device: Assurity [facility] [id number] Atrial lead : Tendril STS [id number] Ventricular lead: Tendril STS [id number] Conclusion successful implantation of a dual-chamber permanent pacemaker. Patient Problems: Problems Problem Status Onset History of infection due to ESBL Klebsiella oxytoca Acute GERD (gastroesophageal reflux disease) Acute Pulmonary embolus Acute Hiatal hernia Acute Dizziness Acute Hypokalemia Acute Hyponatremia Acute Hypoxia Acute Urinary retention Acute Hypotension Acute Urinary tract infection Acute Bradycardia Acute Contusion of right knee, initial encounter Acute Heart block AV complete Acute
--- NOTE | 2018-08-20 14:27 | HOSPPROG ---
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 seen post operatively. no cp or sob. no n/v. Objective: Vital Signs Temp Pulse Resp BP Pulse Ox 37.0 C 63 16 78/56 L 93 08/20/18 04:00 08/20/18 09:20 08/20/18 09:20 08/20/18 09:20 08/20/18 09:20 Laboratory Results 08/20/18 03:56 08/20/18 03:56 08/19/18 08/20/18 08/21/18 05:59 05:59 05:59 Intake Total 1115 950 Output Total 750 Balance 365 950 PT 13.3 SEC (12.0-15.0) 08/20/18 03:56 INR 1.05 (0.83-1.16) 08/20/18 03:56 - Physical Exam Constitutional: no apparent distress Eyes: PERRL, EOMI Ears, Nose, Mouth, Throat: moist mucous membranes, hearing normal Cardiovascular: regular rate and rhythym, No edema Respiratory: no respiratory distress, no rales or rhonchi, clear to auscultation Gastrointestinal: normoactive bowel sounds, soft, non-tender abdomen Skin: warm Neurologic: AAOx3 Psychiatric: interacting appropriately, not anxious, not encephalopathic Lymph, Heme, Immunologic: No petechiae ICD10 Worksheet Patient Problems: Problems Problem Status Onset Bradycardia Acute Contusion of right knee, initial encounter Acute Dizziness Acute Heart block AV complete Acute History of infection due to ESBL Klebsiella oxytoca Acute GERD (gastroesophageal reflux disease) Acute Hiatal hernia Acute Hypokalemia Acute Hyponatremia Acute Hypotension Acute Hypoxia Acute Pulmonary embolus Acute Urinary retention Acute Urinary tract infection Acute
--- NOTE | 2018-08-20 16:34 | ASMTCMCOM ---
CM Note CM Note Notes: 08/20/2018 Case Management Note Met w/pt daughter Rosario NOONAN while pt was having pacemaker procedure. Per Rosario, Rosario now has financial and medical POA as pt as been deemed incapacitated by primary care providers in outpatient setting d/t alzheimer's like dementia. Rosario has a mid afternoon appointment tomorrow in [place] at 2:45 pm. Rosario would prefer early am d/c to [facility]. Discussed chcf plans for pt with Rosario. Pt has a space on the [facility] near [place]. Rosario has deferred placement as pt has managed in the home with Rosario's support. Rosario to reassess pt abilities after SNF stay. Discussed w/Allegra from [facility]. [facility] Management [facility]. Case Management to follow. Date Signed: 08/20/2018 04:34 PM Electronically Signed By:Anyi Branch RN
[2018-08-20] MEDS: QUEtiapine FUMARATE 25 MG TAB PO SCH (20:21)
[2018-08-20] MEDS: CITALOPRAM 20 MG TAB PO SCH (20:22)
[2018-08-20] MEDS: DONEPEZIL HCL 5 MG TAB PO SCH (20:22)
[2018-08-20] MEDS: ELLURA PO SCH (20:24)
[2018-08-20] MEDS: CALCIUM CARBONATE 500 MG TAB PO SCH (20:24)
[2018-08-21] MEDS: LEVOTHYROXINE 25 MCG TAB PO SCH (07:06)
[2018-08-21] MEDS: ACETAMINOPHEN 500 MG TAB PO SCH ×2 (07:07→15:28)
[2018-08-21] MEDS: METHENAMINE HIPP 1 GM TAB PO SCH ×2 (08:13→21:11)
[2018-08-21] MEDS: MEMANTINE HCL 5 MG TAB PO SCH ×2 (08:14→21:09)
[2018-08-21] MEDS: PANTOPRAZOLE SODIUM 40 MG TAB PO SCH (08:15)
[2018-08-21] MEDS: FAMOTIDINE 20 MG TAB PO SCH ×2 (08:15→21:12)
[2018-08-21] MEDS: ASCORBIC ACID 250 MG TAB PO SCH ×2 (08:16→21:11)
[2018-08-21] MEDS: CHOLECALCIFEROL VIT D3 2,000 UNITS TAB/CAP PO SCH (08:16)
[2018-08-21 08:46] LABS: PLATELET COUNT 225 10^3/uL (150-400)
[2018-08-21] MEDS: IRON FUM PO SCH (08:53)
[2018-08-21] MEDS: FOLIC PO SCH (08:53)
[2018-08-21] MEDS: PRENATAL VITS96 PO SCH (08:53)
[2018-08-21] MEDS ORDERED: NS 500 ML IV ONE (09:00)
--- NOTE | 2018-08-21 10:44 | HOSPPROG ---
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 The BP now is in the low 90's systolic. Nursing reports minimal urine output yesterday and this morning. Will provide an additional 1 L of NS at 75ml per hour. Monitor overnight. No signs of infection. No urinary sx's. No hx of recent steroid use. No signs of bleeding. A stat CXR has been ordered. No resp symptoms currently. HR appropriate. Will monitor overnight * Resume Eliquis soon * PT/OT * D/C Planning: will need Rehab * post op care * intermittent echo's for her Mitral Stenosis outpatient total critical care time is 35 minutes. will cont to monitor BP. Subjective: called to see pt as BP in the mid 60's systolic. Afebrile. Feels weak when getting up. No resp symptoms. No cough. Objective: Vital Signs Temp Pulse Resp BP Pulse Ox 36.6 C 66 16 96/58 L 93 08/21/18 07:29 08/21/18 07:29 08/21/18 07:29 08/21/18 10:05 08/21/18 07:29 Laboratory Results 08/21/18 08:36 08/21/18 08:36 08/20/18 08/21/18 08/22/18 05:59 05:59 05:59 Intake Total 950 580 Output Total 0 250 Balance 950 580 -250 PT 13.3 SEC (12.0-15.0) 08/20/18 03:56 INR 1.05 (0.83-1.16) 08/20/18 03:56 - Physical Exam Constitutional: chronically ill appearing Eyes: PERRL, EOMI Ears, Nose, Mouth, Throat: dry mucous membranes Cardiovascular: regular rate and rhythym Respiratory: no respiratory distress, no rales or rhonchi, clear to auscultation Gastrointestinal: normoactive bowel sounds Skin: warm Neurologic: AAOx3 Psychiatric: interacting appropriately, not anxious, not encephalopathic Lymph, Heme, Immunologic: No petechiae ICD10 Worksheet Patient Problems: Problems Problem Status Onset Bradycardia Acute Contusion of right knee, initial encounter Acute Dizziness Acute Heart block AV complete Acute History of infection due to ESBL Klebsiella oxytoca Acute GERD (gastroesophageal reflux disease) Acute Hiatal hernia Acute Hypokalemia Acute Hyponatremia Acute Hypotension Acute Hypoxia Acute Pulmonary embolus Acute Urinary retention Acute Urinary tract infection Acute
[2018-08-21] MEDS ORDERED: NS W/ 20 KCl/L 1,000 ML IV SCH (10:45)
--- NOTE | 2018-08-21 15:47 | PDCARPN ---
Cardiology Progress Note Assessment/Plan: Assessment: Bradycardia with rates 30 to 40's on admission yesterday. Pacemaker to be placed tomorrow. She blacked out and fell in her bathroom and her daughter found her 50 minutes later. She hurt her right knee, wiith no broken bones. Atrial Fibrillation and PE history, on Eliquis for anticoagulation. CHADs VASC score at least "3". Yesterday EKG appeared to be Atrial Fib, today Sinus rhythm. Eliquis is on HOLD for upcoming Pacemaker placement tomorrow. She is feeling well today. Plan: Pacemaker placement tomorrow 08/19/18 14:43 08/21/18 15:42 Pacemaker placed with no complications. Site intact with no redness, ecchymosis , or enduration. No drainage on dressing. Reminded not to bring left arm above shoulder level for 3 to 4 weeks. Resume Eliquis this evening. She will go to [facility] tomorrow. Her daughter has been at bedside this morning. Reviewed/Discussed With: family, hospitalist, multidisciplinary team Time Spent with Patient: greater than 25 minutes Time Spent with Patient: Greater than 25 minutes spent on this patients care, greater than 50% of time spent counseling, educating, and coordinating care regarding the above mentioned plan. Objective: Vital Signs (8 Hrs) Temp Pulse Resp BP Pulse Ox 08/21/18 15:16 36.4 C 55 L 15 124/63 H 95 08/21/18 11:22 36.6 C 66 16 98/54 L 94 08/21/18 10:05 96/58 L 08/21/18 09:34 72/52 L 08/21/18 09:00 70/42 L 08/21/18 08:11 66/42 L Intake/Output (24 Hrs) 08/20/18 08/21/18 08/22/18 05:59 05:59 05:59 Intake Total 950 580 800 Output Total 0 400 Balance 950 580 400 Intake: Oral (ml) 950 580 300 IV Infused (ml) 500 Ns 500 ml @ As Directed 500 IV ONCE ONE Rx#: [id number] Output: Urine (ml) 0 400 Toilet 0 400 Other: Output Comment Toilet BM per pt Number of Voids Toilet 1 2 1 Number of Stools Toilet 1 Result Diagrams: 08/21/18 08:36 08/21/18 08:36 Cardiac Labs: Cardiac Lab Results (72 Hrs) 08/19/18 08/18/18 01:30 19:40 Troponin I < 0.012 < 0.012 - Physical Exam Constitutional: no apparent distress Cardiovascular: regular rate and rhythm, no rubs, no gallops Respiratory: clear to auscultate bilat, no crackles, no wheezes Skin: warm, no edema Neurologic: other (alert and talkitive) Psychiatric: cooperative, interactive ICD10 Worksheet Patient Problems: Problems Problem Status Onset Sick sinus syndrome Acute History of infection due to ESBL Klebsiella oxytoca Acute GERD (gastroesophageal reflux disease) Acute Pulmonary embolus Acute Hiatal hernia Acute Dizziness Acute Hypokalemia Acute Hyponatremia Acute Hypoxia Acute Urinary retention Acute Hypotension Acute Urinary tract infection Acute Bradycardia Acute Contusion of right knee, initial encounter Acute Heart block AV complete Acute
[2018-08-21] MEDS ORDERED: BISACODYL 10 MG SUPP PR PRN (16:32)
[2018-08-21] MEDS ORDERED: POLYETHYLENE GLYCOL 3350 17 GM PKT PO PRN (16:32)
[2018-08-21] MEDS ORDERED: LACTULOSE 20 GM/30 ML UDCUP PO PRN (16:32)
[2018-08-21] MEDS ORDERED: MAGNESIUM HYDROXIDE 30 ML UDCUP PO PRN (16:32)
[2018-08-21] MEDS: QUEtiapine FUMARATE 25 MG TAB PO SCH (21:11)
[2018-08-21] MEDS: APIXABAN 2.5 MG TAB PO SCH (21:11)
[2018-08-21] MEDS: SENNOSIDES/DOCUSATE SODIUM TAB PO SCH (21:11)
[2018-08-21] MEDS: CALCIUM CARBONATE 500 MG TAB PO SCH (21:11)
[2018-08-21] MEDS: DONEPEZIL HCL 5 MG TAB PO SCH (21:12)
[2018-08-21] MEDS: CITALOPRAM 20 MG TAB PO SCH (21:12)
[2018-08-21] MEDS: ELLURA PO SCH (21:18)
[2018-08-22] MEDS: ACETAMINOPHEN 500 MG TAB PO SCH ×2 (00:48→08:17)
[2018-08-22 04:36] LABS: PLATELET COUNT 192 10^3/uL (150-400)
[2018-08-22] MEDS: LEVOTHYROXINE 25 MCG TAB PO SCH (05:44)
[2018-08-22 07:50] VITALS: BP 128/75
[2018-08-22] MEDS: SENNOSIDES/DOCUSATE SODIUM TAB PO SCH (08:18)
[2018-08-22] MEDS: MEMANTINE HCL 5 MG TAB PO SCH (08:18)
[2018-08-22] MEDS: APIXABAN 2.5 MG TAB PO SCH (08:18)
[2018-08-22] MEDS: PANTOPRAZOLE SODIUM 40 MG TAB PO SCH (08:19)
[2018-08-22] MEDS: FAMOTIDINE 20 MG TAB PO SCH (08:19)
[2018-08-22] MEDS: ASCORBIC ACID 250 MG TAB PO SCH (08:19)
[2018-08-22] MEDS: CHOLECALCIFEROL VIT D3 2,000 UNITS TAB/CAP PO SCH (08:19)
[2018-08-22] MEDS: METHENAMINE HIPP 1 GM TAB PO SCH (08:20)
--- NOTE | 2018-08-22 08:30 | PDIAF ---
- Diagnosis Diagnosis: bradycardia, heart block, status post pacemaker. Generalized weakness Code Status: Full Code - Medication Management Discharge Medications: electronically signed and located in the Home Medication List. - Orders Isolation Type: Contact Isolation Diet Recommendation: no restrictions on diet, cardiac -low fat low salt Diet Texture: Regular Texture Diet Additional Instructions: Pacemaker precautions for 4 weeks. Pacemaker instructions per written instructions. Avoid use of L arm above shoulder level. No lifting, pushing,pulling greater than 10 pounds for 4 weeks. Use sling first two days, and at night first 4 days to remind to keep arm below shoulder level. Call clinic with any concerns or questions. Pacemaker and wound check SaturdayAugust 29 at 1PM. Follow up appointment September 22 at 1:45pm at [facility] in [place]. - Follow Up Care Current Providers and Referrals: Silvia Rhodes CNP [Certified Nurse Practioner] - 09/22/18 1:45 pm (Follow up in one month with Silvia PICKARD At [facility] in [place] Call office to schedule appointment. ) Patient,NotPresent [Unknown] - As per Instructions
--- NOTE | 2018-08-22 09:33 | ASMTCMCOM ---
CM Note CM Note Notes: Plan of care reviewed. Discharge to SNF delayed secondary to hypotension this am. Daughter aware. Allegra at [facility] aware. Plan to Snf when medically stable. n: DC to Snf. Date Signed: 08/22/2018 09:33 AM Electronically Signed By:Ju Harris RN
--- NOTE | 2018-08-22 09:48 | ASMTCMCOM ---
CM Note CM Note Notes: Patient medically improved for discharge to SNF at [facility]. Final orders via [employer]. Message left with [facility] admission coordinator. Awaiting call back for transportation. Plan: Dc to SNF Date Signed: 08/22/2018 09:46 AM Electronically Signed By:Ju Harris RN
[2018-08-22] MEDS: PRENATAL VITS96 PO SCH (10:25)
[2018-08-22] MEDS: FOLIC PO SCH (10:25)
[2018-08-22] MEDS: IRON FUM PO SCH (10:25)
--- NOTE | 2018-08-22 10:31 | PDDCSUM ---
Discharge Summary Discharge Summary: This is a 82 yo female who was admitted with fall due to bradycardia. She was admitted and found to have 3rd degree block. Cardiology was consulted. She has a PPM placed. She has w/u which was negative for acute fractures. She is still weak and recovering from injuries related to her fall. She will be discharge to Rehab. She had hypotension yesterday which required IVF. She is not normotensive and off IVF fluids. 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 D/W NURSING, CM, AND CARDIOLOGY.
== END 2018-08-22 12:04 | DRG 244 ==
LOC: EDUNIT# → F2W 15:59
PROVIDERS: ADMIT Student in an Organized Health Care Education/Training Program; ATTEND Family Medicine
DX: I44.2 Atrioventricular block, complete (principal); I48.0 Paroxysmal atrial fibrillation; S83.91XA Sprain of unspecified site of right knee, initial encounter; W19.XXXA Unspecified fall, initial encounter; R26.9 Unspecified abnormalities of gait and mobility; N18.9 Chronic kidney disease, unspecified; E03.9 Hypothyroidism, unspecified; I95.9 Hypotension, unspecified; G30.9 Alzheimer's disease, unspecified; F02.80 Dementia in other diseases classified elsewhere, unspecified severity, without behavioral disturbance, psychotic disturbance, mood disturbance, and anxiety; I10 Essential (primary) hypertension; I05.0 Rheumatic mitral stenosis; Y92.012 Bathroom of single-family (private) house as the place of occurrence of the external cause; Z79.01 Long term (current) use of anticoagulants; Z96.651 Presence of right artificial knee joint; Z86.711 Personal history of pulmonary embolism
CPT/HCPCS: 84484-ER; 92523-GN; 96374; 97110-GP; 97116-GP; 97161-GP; 97165-GO; 97535-GO; C1785; C1898; G0515-GO; J0690; J2250; J3010; Q9967

== ENCOUNTER 2018-09-17 13:19 | Emergency (ER) | payer OTHER | END 2018-09-17 14:14 | disposition home or self-care (01) | LOC: CED 13:19 ==